=== PATIENT | female | born 1970 | race Caucasian/White ===

== ENCOUNTER → 2017-02-15 | Outpatient (CLI) | payer MEDICAID, OTHER ==
[~2017-02-15] MED LIST: ATOR40TA70 PO; AZEL23SP NS; BACL10TA PO; CLON0.5T3 PO; CLON1TAB3 PO; DICY10CA59 PO; DIPH25TA31 PO; DOCU-143 PO; DULA1.5P2 SQ; FLUT9.9S NS; GABA-486 PO; GEMF600T PO; HYDR-3812 PO; IBUP-1780 PO; LOVA40TA2 PO; MAGN300C PO; MELO7.5T46 PO; METF500T4 PO; METO-351 PO; OXCA600T3 PO; RT-ALBUINH IH; SERT100T8 PO; TRAZ100T92 PO; VORT20TA PO; VORT5TAB PO; ZOLM2.5T7 PO; ZOLP10TA5 PO
--- NOTE | 2017-02-15 13:33 | Diagnostic Imaging Report ---
PROCEDURE: MRI left upper extremity without contrast. TECHNIQUE: Multiplanar, multisequence non contrast-enhanced MRI of the left upper extremity was accomplished. INDICATION: Left shoulder pain. FINDINGS: There is no os acromiale or Hill-Sachs deformity. There is acromioclavicular joint osteoarthritis with inferior osteophytes seen. This has an impression upon the myotendinous junction of the supraspinatus. This is associated with minimal reactive increased signal on T2-weighted images at the underlying tendon. The distal aspect of the supraspinatus and to lesser extent the infraspinatus tendon demonstrates thickening with increased signal compatible with tendinosis. No high-grade tear or tendon fibers retraction seen. The subscapular tendon appears intact. The long head of the biceps tendon is within its groove. The visualized portions of the labrum appear grossly unremarkable based on this exam without intra-articular contrast. No significant signal abnormality. The muscle bulk and signal around the shoulder appears normal. IMPRESSION: 1. Acromioclavicular osteoarthritis with inferior osteophytes that have mild impression upon the myotendinous junction of the supraspinatus and minimal reactive increased signal. Correlate clinically for possible associated impingement. 2. Tendinosis in the distal supraspinatus and infraspinatus tendons. No high-grade or retracted tear seen. Dictated by: Dictated on workstation # [id number]
== END ==
LOC: RAD 12:22
PROVIDERS: ATTEND Nurse Practitioner Family
DX: M25.512 Pain in left shoulder (principal)
CPT/HCPCS: 73221

== ENCOUNTER → 2017-04-12 | Outpatient (CLI) | payer MEDICARE, OTHER ==
--- NOTE | 2017-04-13 19:14 | Diagnostic Imaging Report ---
Bilateral screening mammogram 2D views with tomosynthesis The current study was also evaluated with a Computer Aided Detection (CAD) system. Indication: Screening. No current complaints stated on the questionnaire. COMPARISON: 12/16/15. FINDINGS: The breasts are composed of heterogeneously dense parenchyma which may decrease mammographic sensitivity. Benign-appearing calcifications seen. Allowing for technique and positional differences, no suspicious change is seen. IMPRESSION: Dense breasts with no definite change. ACR BI-RADS Category 2: Benign findings. Result letter will be mailed to the patient. Note: At least 10% of breast cancer is not imaged by mammography. Dictated by: Dictated on workstation # [id number]
== END ==
LOC: RAD 13:06
PROVIDERS: ATTEND Nurse Practitioner Family
DX: Z12.31 Encounter for screening mammogram for malignant neoplasm of breast (principal)
CPT/HCPCS: 77067

== ENCOUNTER → 2017-11-20 | Outpatient (CLI) | payer MEDICARE, BC ==
[~2017-11-20] MED LIST changes: +ACHD5005 PO; -HYDR-3812 PO
--- NOTE | 2017-11-20 10:22 | Diagnostic Imaging Report ---
INDICATION: History of heart catheterization two years ago. Patient currently complains of pain in the right groin. TECHNIQUE: Grayscale, color-flow and duplex Doppler evaluation of the right lower extremity arterial system was performed. FINDINGS: There are predominantly triphasic waveforms throughout the right lower extremity arterial system. The velocities are normal. No velocity elevation is seen to suggest stenosis. There is no occlusion. Mild scattered plaque is present. The right groin is without evidence of pseudoaneurysm or hematoma. IMPRESSION: Unremarkable right lower extremity arterial Doppler. Dictated by: Dictated on workstation # [id number]
== END ==
LOC: RAD 09:32
PROVIDERS: ATTEND Nurse Practitioner Family
DX: I73.9 Peripheral vascular disease, unspecified (principal); E11.9 Type 2 diabetes mellitus without complications; E78.5 Hyperlipidemia, unspecified; R07.89 Other chest pain; R00.2 Palpitations
CPT/HCPCS: 93926

== ENCOUNTER → 2017-11-21 | Outpatient (CLI) | payer BC, MEDICARE ==
[~2017-11-21] VITALS: Ht 165.1 cm; Wt 81.6 kg
[~2017-11-21] MED LIST changes: +CATHETER FLUSH 10 ML SYR IV PRN; +REGADENOSON 0.4 MG/5 ML SYR (LEXISCAN) IV ONE
[2017-11-21 13:30] VITALS: BP 129/92
--- NOTE | 2017-11-21 16:53 | STRESS TEST ---
DATE OF SERVICE: 11/21/2017 RESTING AND POST REGADENOSON TECHNETIUM-99M TETROFOSMIN SPECT CT IMAGING ORDERING PHYSICIAN: Misty Conde APRN. CLINICAL DIAGNOSES: Chest pain, palpitations, hyperlipidemia, type 2 diabetes mellitus. Baseline images were carried out after injection of 10.55 mCi of technetium-99m Tetrofosmin. This was followed by 0.4 mg regadenoson and 30.4 mCi technetium-99m Tetrofosmin for stress imaging. The electrocardiogram showed sinus rhythm at baseline and did not change significantly with the regadenoson infusion. Review of images at rest and following stress does not indicate any significant perfusion defects consistent with any significant myocardial ischemia or infarction. Gated images show normal global left ventricular systolic function and normal regional wall motion. Left ventricular ejection fraction is calculated to be 72%. Left ventricular end diastolic volume is 32 mL. TID is absent (1.13). CONCLUSION: 1. No evidence of any significant myocardial ischemia or infarction on this study. 2. Normal regional wall motion. 3. Normal global left ventricular systolic function with a calculated ejection fraction of 72%. 4. Normal left ventricular cavity size. Job ID: [id number] DocumentID: [id number] Dictated Date: 11/21/2017 15:05:12 Museum Librarian Date: 11/21/2017 16:52:25 Dictated By: CLAUS MILLER MD, MA, FACP, FACC, MTDD
== END ==
LOC: CARD 11:25
PROVIDERS: ATTEND Nurse Practitioner Family
DX: R07.89 Other chest pain (principal); R00.2 Palpitations; E78.5 Hyperlipidemia, unspecified; E11.9 Type 2 diabetes mellitus without complications
CPT/HCPCS: 36415; 78452; 84703; 93017

== ENCOUNTER → 2021-02-26 | Outpatient (CLI) | payer BC, MEDICARE ==
[~2021-02-26] VITALS: Ht 165 cm; Wt 84.0 kg
[~2021-02-26] MED LIST changes: -CATHETER FLUSH 10 ML SYR IV PRN; -CLON0.5T3 PO; +CLON0.5T4 PO; +CLON1TAB13 PO; -CLON1TAB3 PO; +METF-397 PO; -METF500T4 PO; +SERT-414 PO; -SERT100T8 PO; +TRAZ-227 PO; -TRAZ100T92 PO; +ZOLM2.5T31 PO; -ZOLM2.5T7 PO
[2021-02-26] MEDS: CATHETER FLUSH 10 ML SYR IV PRN (07:14)
[2021-02-26 08:14] VITALS: BP 118/83
--- NOTE | 2021-02-26 10:52 | STRESS TEST ---
DATE OF SERVICE: 02/26/2021 RESTING AND POST REGADENOSON TECHNETIUM-99M TETROFOSMIN SPECT CT IMAGING ORDERING PHYSICIAN: Dr. French. PRIMARY PHYSICIAN: Dr. French. CLINICAL DIAGNOSIS: Chest discomfort. Baseline images were carried out after injection of 10.6 mCi of technetium-99m Tetrofosmin. This was followed by 0.4 mg regadenoson and 33 mCi of technetium-99m Tetrofosmin for stress imaging, which was done under Dr. French's supervision and the electrocardiographic part of the study is reported separately by him. Review of images at rest and following stress does not indicate any significant perfusion defects consistent with myocardial ischemia or infarction. Gated images show normal global left ventricular systolic function with normal regional wall motion. Left ventricular ejection fraction is calculated to be 72%. Left ventricular end diastolic volume is 28 mL. TID is absent (0.94). CONCLUSIONS: 1. No evidence of any significant myocardial ischemia or infarction on this study. 2. Normal regional wall motion. 3. Normal global left ventricular systolic function with a calculated ejection fraction of 72%. Job ID: [id number] DocumentID: [id number] Dictated Date: 02/26/2021 10:13:35 Customer Sales Consultant Date: 02/26/2021 10:51:33 Dictated By: CLAUS MILLER MD, MA, FACP, FACC,
== END ==
LOC: CARD 07:15
PROVIDERS: ATTEND Nurse Practitioner Family
DX: R07.89 Other chest pain (principal)
CPT/HCPCS: 78452; 93017; A9502

== ENCOUNTER → 2021-03-05 | Outpatient (CLI) | payer BC, MEDICARE ==
[~2021-03-05] MED LIST changes: -REGADENOSON 0.4 MG/5 ML SYR (LEXISCAN) IV ONE
--- NOTE | 2021-03-05 12:57 | Diagnostic Imaging Report ---
INDICATION: Bacterial pneumonia. COMPARISON: None available TECHNIQUE: 2 radiographs of the chest dated 03/05/2021 FINDINGS: The cardiac silhouette is within normal limits in size. No significant pulmonary vascular congestion. The lungs are clear. No pleural effusion. No pneumothorax. No acute osseous abnormality. Surgical clips within the right upper quadrant abdomen. IMPRESSION: No acute cardiopulmonary abnormality. Dictated by: Dictated on workstation # [id number]
[2021-03-05 13:02] LABS: HEMATOCRIT 43 % (35-52); HEMOGLOBIN 14.7 g/dL (11.5-16.0); MEAN CORPUSCULAR HEMOGLOBIN 29 pg (25-34); MEAN CORPUSCULAR HGB CONC 35 g/dL (32-36); MEAN CORPUSCULAR VOLUME 84 fL (80-99); MEAN PLATELET VOLUME 10.1 fL (9.0-12.2); PLATELET COUNT 220 10^3/uL (130-400); WHITE BLOOD COUNT 7.4 10^3/uL (4.3-11.0)
[2021-03-05 13:28] LABS: ALANINE AMINOTRANSFERASE 31 U/L (0-55); ALBUMIN 4.3 GM/DL (3.2-4.5); ALKALINE PHOSPHATASE 97 U/L (40-136); BILIRUBIN,TOTAL 0.6 MG/DL (0.1-1.0); BUN/CREATININE RATIO 10; CALCIUM 8.5 MG/DL (8.5-10.1); CARBON DIOXIDE 21 MMOL/L (21-32); CHLORIDE 103 MMOL/L (98-107); CREATININE SERUM 0.69 MG/DL (0.60-1.30); GFR ESTIMATED > 60; GLUCOSE 184 MG/DL (70-105); POTASSIUM 3.6 MMOL/L (3.6-5.0); SODIUM 137 MMOL/L (135-145); TOTAL PROTEIN 7.3 GM/DL (6.4-8.2)
== END ==
LOC: RAD 12:30
PROVIDERS: ATTEND Internal Medicine
DX: J15.9 Unspecified bacterial pneumonia (principal)
CPT/HCPCS: 36415; 71046; 80053; 85027; 87070; 87205

== ENCOUNTER 2021-04-14 12:15 | Outpatient (CLI) | payer BC, MEDICARE, MEDICAID ==
[~2021-04-14] VITALS: Ht 165 cm; Wt 81.6 kg
[2021-04-14 12:10] VITALS: BP 120/82
[2021-04-14] MEDS ORDERED: CASIRIVIMAB/IMDEVIMAB 1,200 MG in NS (IVPB) 250 ML IV ONE (12:30)
[2021-04-14] MEDS ORDERED: EPINEPHrine INJECTION 1 MG/ML AMP IM PRN (12:30)
[2021-04-14] MEDS ORDERED: diphenhydrAMINE 50 MG/ML INJ (BENADRYL) IV PRN (12:30)
[2021-04-14 12:32] VITALS: BP 107/61
[2021-04-14 13:25] VITALS: BP 114/78
== END 2021-04-14 14:25 | disposition home or self-care (01) ==
LOC: INFUSION 12:15
PROVIDERS: ATTEND Nurse Practitioner Family
DX: Z23 Encounter for immunization (principal); U07.1 COVID-19
CPT/HCPCS: 82947; M0243

== ENCOUNTER 2021-04-15 15:51 | Inpatient (IN) | payer BC, MEDICARE, MEDICAID ==
[~2021-04-15] VITALS: Ht 165 cm; Wt 80.1 kg
--- NOTE | 2021-04-15 16:41 | ED Respiratory ---
General Chief Complaint: Respiratory Problems Stated Complaint: SOB, VOMITTING, DIZZINESS, COVID POSITIVE Nursing Triage Note: PT PRESENTS TO ED FOR CONTINUED SHORTNESS OF BREATH THAT STARTED LAST MONDAY. PT WAS DIAGNOSED WITH COVID 04/10/21. PT GOT THE BAM INFUSION BUT HAS NO IMPROVEMENT, SHE REPORTS WORSENING OF SHORTNESS OF BREATH. PT REPORTS FEELING "DISORIENTED WHEN I WALK, I GET DIZZY". PT REPORTS SHE DOES HAVE ISSUES WITH HYPERTENSION. PT BROUGHT TO ROOM 09 VIA WC AND ASSISTED TO BED. Source: patient Exam Limitations: no limitations (BELÉN BYRD MD) History of Present Illness Date Seen by Provider: Apr 15, 2021 Time Seen by Provider: 16:25 Initial Comments Patient is a 51-year-old female who presents to the emergency room with a chief complaint of shortness of breath. Patient states that she was diagnosed with Covid on 10 April. She got her monoclonal antibody infusion yesterday but states that she is still short of breath. Patient states that she is "foggy headed". She has been nauseated and having vomiting. She is also having diarrhea. Patient is not currently on antibiotics. She has not had a chest x-ray since her diagnosis. Decreased oral intake. Patient looks well on presentation. She was satting 90 to 91% on room air and was placed on 2 L satting 94 to 95%. No increased work of breathing. All other review of systems reviewed and negative except as stated above. Timing/Duration: week, getting worse Severity: moderate Prior Episodes/Possible Cause: illness exposure Modifying Factors: Worse With Coughing Associated Symptoms: dizziness, fever/chills, lightheadedness, shortness of breath (BELÉN BYRD MD) Allergies and Home Medications Allergies Coded Allergies: No Known Drug Allergies (Verified , 07/18/16) Home Medications Albuterol Sulfate 8.5 Gm Hfa.aer.ad, 1-2 PUFF IH Q4H PRN for SHORTNESS OF BREATH, (Reported) Atorvastatin Calcium 40 Mg Tablet, 40 MG PO DAILY, (Reported) Baclofen 10 Mg Tablet, 10 MG PO TID PRN for PAIN, (Reported) Clonazepam 1 Mg Tablet, 1 MG PO TID, (Reported) Dicyclomine HCl 10 Mg Capsule, 10 MG PO AC, (Reported) Docusate Sodium 100 Mg Capsule, 100 MG PO BID Prescribed by: QAMAR ANDERSON on 01/21/16912 Dulaglutide 1.5 Mg/0.5 Ml Pen.injctr, 1.5 MG SQ WEEKLY, (Reported) Fluticasone Propionate 9.9 Ml [place].susp, 1 SPRAY NS DAILY, (Reported) Gabapentin 100 Mg Capsule, 100 MG PO TID, (Reported) Gemfibrozil 600 Mg Tablet, 600 MG PO BID, (Reported) Hydrocodone Bit/Acetaminophen 1 Each Tablet, 1 TAB PO Q4H PRN Prescribed by: QAMAR ANDERSON on 01/21/16912 Ibuprofen 800 Mg Tablet, 800 MG PO Q8H, (Reported) Magnesium Oxide/Mag Aa Chelate 300 Mg Capsule, 300 MG PO DAILY, (Reported) Metformin HCl 500 Mg Tablet, 500 MG PO BID, (Reported) Oxcarbazepine 600 Mg Tablet, 600 MG PO BID, (Reported) Trazodone HCl 100 Mg Tablet, 100 MG PO HS, (Reported) Vortioxetine Hydrobromide 20 Mg Tablet, 20 MG PO DAILY, (Reported) Zolmitriptan 2.5 Mg Tablet, 2.5 MG PO DAILY PRN for HEADACHE, (Reported) Patient Home Medication List Home Medication List Reviewed: Yes (BELÉN BYRD MD) Review of Systems Review of Systems Constitutional: see HPI EENTM: no symptoms reported Respiratory: cough, dyspnea on exertion, short of breath Cardiovascular: no symptoms reported Gastrointestinal: diarrhea, nausea, vomiting Genitourinary: no symptoms reported Musculoskeletal: no symptoms reported Psychiatric/Neurological: Other (Dizziness) (BELÉN BYRD MD) Past Yhrrppz-Qcyzsv-Hlwnfe Hx Seasonal Allergies Seasonal Allergies: Yes (BELÉN BYRD MD) Past Medical History Asthma Currently Using CPAP: Yes Currently Using BIPAP: No Reproductive Disorders: No Female Reproductive Disorders: Denies Sexually Transmitted Disease: No HIV/AIDS: No Gastroesophageal Reflux, Liver Disease/Jaundice, Chronic Diarrhea Degenerate Disk Disease, Arthritis, Fibromyalgia, Chronic Back Pain Diabetes, Non-Insulin dep Loss of Vision: Bilateral Hearing Impairment: Denies Anxiety, Depression Adverse Reaction/Blood Tranf: No (BELÉN BYRD MD) Physical Exam Vital Signs - First Documented 04/15/21 04/15/21 16:05 17:15 Temp 37.1 Pulse 98 Resp 20 B/P (MAP) 116/84 (95) Pulse Ox 94 O2 Delivery Room Air FiO2 90 (FRANCISCO RIVERA DO) Capillary Refill : Less Than 3 Seconds (BELÉN BYRD MD) Height: 5'5.00" Weight: 180lbs. 0.0oz. 81.358458mo; 29.00 BMI Method: General Appearance: WD/WN, no apparent distress HEENT: PERRL/EOMI Respiratory: no respiratory distress, no accessory muscle use, crackles (At the bases posteriorly, bilaterally) Cardiovascular: regular rate, rhythm Gastrointestinal: non tender, soft Extremities: normal inspection, no pedal edema, no calf tenderness, normal capillary refill Neurologic/Psychiatric: alert, normal mood/affect, oriented x 3 Skin: normal color, warm/dry (BELÉN BYRD MD) Focused Exam Lactate Level 04/15/21 18:30: Lactic Acid Level 2.28*H (FRANCISCO RIVERA DO) Lactic Acid Level Laboratory Tests Test 04/15/21 18:30 Lactic Acid Level 2.28 MMOL/L (0.50-2.00) *H (FRANCISCO RIVERA DO) Progress/Results/Core Measures Suspected Sepsis SIRS Temperature: Pulse: 98 Respiratory Rate: 20 Laboratory Tests 04/15/21 16:14: White Blood Count 8.2 Blood Pressure 116 /84 Mean: 95 Laboratory Tests 04/15/21 16:14: Creatinine 1.47H, Platelet Count 125L (BELÉN BYRD MD) Results/Orders Lab Results Laboratory Tests Test 04/15/21 16:14 04/15/21 18:26 04/15/21 18:30 04/15/21 18:46 Range/Units White Blood Count 8.2 4.3-11.0 10^3/uL Red Blood Count 4.78 3.80-5.11 10^6/uL Hemoglobin 13.8 11.5-16.0 g/dL Hematocrit 40 35-52 % Mean Corpuscular Volume 84 80-99 fL Mean Corpuscular Hemoglobin 29 25-34 pg Mean Corpuscular Hemoglobin Concent 35 32-36 g/dL Red Cell Distribution Width 12.9 10.0-14.5 % Platelet Count 125 L 130-400 10^3/uL Mean Platelet Volume 11.5 9.0-12.2 fL Immature Granulocyte % (Auto) 1 % Neutrophils (%) (Auto) 81 H 42-75 % Lymphocytes (%) (Auto) 17 12-44 % Monocytes (%) (Auto) 2 0-12 % Eosinophils (%) (Auto) 0 0-10 % Basophils (%) (Auto) 0 0-10 % Neutrophils # (Auto) 6.6 1.8-7.8 10^3/uL Lymphocytes # (Auto) 1.4 1.0-4.0 10^3/uL Monocytes # (Auto) 0.1 0.0-1.0 10^3/uL Eosinophils # (Auto) 0.0 0.0-0.3 10^3/uL Basophils # (Auto) 0.0 0.0-0.1 10^3/uL Immature Granulocyte # (Auto) 0.0 0.0-0.1 10^3/uL Percent Immature Platelet Fraction 5.5 0.0-7.6 % Erythrocyte Sedimentation Rate 52 H 0-30 MM/HR Prothrombin Time 13.7 12.2-14.7 SEC INR Comment 1.0 0.8-1.4 Activated Partial Thromboplast Time 40 H 24-35 SEC D-Dimer 0.48 0.00-0.49 UG/ML Sodium Level 139 135-145 MMOL/L Potassium Level 3.2 L 3.6-5.0 MMOL/L Chloride Level 103 98-107 MMOL/L Carbon Dioxide Level 18 L 21-32 MMOL/L Anion Gap 18 H 5-14 MMOL/L Blood Urea Nitrogen 15 7-18 MG/DL Creatinine 1.47 H 0.60-1.30 MG/DL Estimat Glomerular Filtration Rate 38 BUN/Creatinine Ratio 10 Glucose Level 507 *H 70-105 MG/DL Calcium Level 8.8 8.5-10.1 MG/DL Magnesium Level 1.5 L 1.6-2.4 MG/DL Total Bilirubin 0.5 0.1-1.0 MG/DL Direct Bilirubin 0.2 0.0-0.3 MG/DL Indirect Bilirubin 0.3 MG/DL Aspartate Amino Transf (AST/SGOT) 36 H 5-34 U/L Alanine Aminotransferase (ALT/SGPT) 42 0-55 U/L Alkaline Phosphatase 82 40-136 U/L Lactate Dehydrogenase 286 H 125-220 U/L Total Creatine Kinase 43 29-168 U/L Creatine Kinase MB 0.3 <6.6 NG/ML Myoglobin 35.8 10.0-92.0 NG/ML Troponin I < 0.028 <0.028 NG/ML C-Reactive Protein High Sensitivity 21.39 H 0.00-0.50 MG/DL B-Type Natriuretic Peptide 22.7 <100.0 PG/ML Total Protein 7.3 6.4-8.2 GM/DL Albumin 3.9 3.2-4.5 GM/DL Beta-Hydroxybutyrate (Chem panel) 0.11 0.00-0.27 MMOL/L Procalcitonin 0.53 H <0.10 NG/ML Glucometer 362 H 70-110 MG/DL Lactic Acid Level 2.28 *H 0.50-2.00 MMOL/L Blood Gas Puncture Site R RADIAL Blood Gas Patient Temperature 97.7 Arterial Blood pH 7.32 *L 7.37-7.43 Arterial Blood Partial Pressure CO2 42 35-45 MMHG Arterial Blood Partial Pressure O2 32 *L 79-93 MMHG Arterial Blood HCO3 21 L 23-27 MMOL/L Arterial Blood Total CO2 22.2 21.0-31.0 MMOL/L Arterial Blood Oxygen Saturation 41 L 94-100 % Arterial Blood Base Excess -4.4 L -2.5-2.5 MMOL/L Arpit Test POSITIVE Blood Gas Ventilator Setting NO Blood Gas Inspired Oxygen N/A Test 04/15/21 19:37 Range/Units Glucometer 323 H 70-110 MG/DL (FANNY,FRANCISCO K DO) My Orders Orders - FANNY,FRANCISCO K DO Acetaminophen Tablet (Tylenol Tablet) (04/15/21 18:30) LDH (04/15/21 18:25) Blood Culture (04/15/21 18:25) Liver Panel (04/15/21 18:25) Fibrin Degradation Products (04/15/21 18:25) Lactic Acid Analyzer (04/15/21 18:25) Magnesium (04/15/21 18:25) Protime With Inr (04/15/21 18:25) Partial Thromboplastin Time (04/15/21 18:25) Hs C Reactive Protein (04/15/21 18:25) Erythrocyte Sedimentation Rate (04/15/21 18:25) Ua Culture If Indicated (04/15/21 18:25) Ed Iv/Invasive Line Start (04/15/21 18:32) Ns Iv 1000 Ml (Sodium Chloride 0.9%) (04/15/21 18:45) Potassium Chloride (Tablet) (Klor Con Ta (04/15/21 18:45) Aspirin Chewable Tablet (Baby Aspirin Ch (04/15/21 19:00) Ekg Tracing (04/15/21 18:51) O2 (04/15/21 18:51) Monitor-Rhythm Ecg Trace Only (04/15/21 18:51) BNP (04/15/21 18:51) Creatine Kinase (04/15/21 18:51) Creatine Kinase Mb (04/15/21 18:51) Myoglobin Serum (04/15/21 18:51) Troponin I (04/15/21 18:51) Nitroglycerin 0.4 Mg Btl 25's (Nitrostat (04/15/21 19:00) Arterial Blood Gas (04/15/21 19:13) Ceftriaxone (Rocephin) (04/15/21 19:30) Azithromycin Injection (Zithromax Inject (04/15/21 19:30) Magnesium Oxide Tablet (Mag Ox Tablet) (04/15/21 19:30) Accucheck Stat ONCE (04/15/21 19:28) (FRANCISCO RIVERA DO) Medications Given in ED Current Medications Medications Dose Ordered Sig/Víctor Route Start Time Stop Time Status Last Admin Dose Admin Acetaminophen 1,000 mg ONCE ONCE PO 04/15/21 18:30 04/15/21 18:31 DC 04/15/21 18:29 1,000 MG Aspirin 324 mg ONCE ONCE PO 04/15/21 19:00 04/15/21 19:01 DC 04/15/21 19:01 324 MG Azithromycin 500 mg/Sodium Chloride 250 ml @ 250 mls/hr ONCE ONCE IV 04/15/21 19:30 04/15/21 20:29 DC 04/15/21 19:54 250 MLS/HR Ceftriaxone Sodium 1000 mg/ Sterile Water 10 ml @ 200 mls/hr ONCE ONCE IV 04/15/21 19:30 04/15/21 19:32 DC 04/15/21 19:44 200 MLS/HR Magnesium Oxide 2,000 mg ONCE ONCE PO 04/15/21 19:30 04/15/21 19:31 DC 04/15/21 19:41 2,000 MG Nitroglycerin 1 TAB Q 5 MIN X 3 NEEDED PRN SL 04/15/21 19:00 04/15/21 21:45 DC 04/15/21 19:06 0.4 MG Ondansetron HCl 4 mg ONCE ONCE PO 04/15/21 16:45 04/15/21 16:46 DC 04/15/21 16:48 4 MG Potassium Chloride 40 meq ONCE ONCE PO 04/15/21 18:45 04/15/21 18:46 DC 04/15/21 18:38 40 MEQ (FRANCISCO RIVERA DO) Vital Signs/I&O 04/15/21 04/15/21 04/15/21 16:05 17:15 19:11 Temp 37.1 Pulse 98 94 Resp 20 B/P (MAP) 116/84 (95) Pulse Ox 94 O2 Delivery Room Air Room Air FiO2 90 04/16/21 00:00 Intake Total 4000 ml Balance 4000 ml (FANNY,FRANCISCO K DO) Vital Signs/I&O Capillary Refill : Less Than 3 Seconds (BELÉN BYRD MD) Blood Pressure Mean: 95 Progress Note : Time: 17:54 Progress Note Patient laboratory studies evaluated, she has a CO2 of 18, and anion gap of 18 and a serum blood sugar of 507. Patient is hydrated with 2 L of normal saline here in the emergency department. I have added on beta hydroxybutyrate as well as an ABG to further evaluate for DKA. Anticipate if these are normal the patient can be discharged home as she is not hypoxic or in any respiratory distress. If they are abnormal the patient will need to be admitted observation for treatment of her DKA. (BELÉN BYRD MD) Progress Note : Progress Note 1800--ASSUMED CARE FROM DR. BYRD. ABG AND BETA-HYDROXYBUTYRATE PENDING. PT IS 95% ON ROOM AIR AND NO DYSPNEA. PT WANTING SOMETHING FOR BODY ACHES--TYLENOL ORDERED. PT IS AFEBRILE 1851--O2 SATS BACK DOWN TO 89-91% ON ROOM AIR--UP TO MID 90'S ON O2 AT 2L/NC. PT NOW C/O CHEST PAIN. REPEAT EKG DONE, WHICH IS UNCHANGED, AND ADDITIONAL LAB OR DERED. PT ALSO GIVEN ASPIRIN AND NTG X 3 WITH IMPROVEMENT IN SYMPTOMS PT GIVEN ROCEPHIN AND ZITHROMAX PT GIVEN MAGNESIUM VITALS STABLE NO DYSPNEA NO COUGH NO FEVER GIVEN IV FLUIDS WITH GLUCOSE DOWN TO 300'S (FRANCISCO RIVERA DO) ECG Initial ECG Impression Date: Apr 15, 2021 Initial ECG Impression Time: 16:54 Initial ECG Rate: 94 Initial ECG Rhythm: Normal Sinus EKG : EKG Time: 18:57 Rate: 95 Rhythm: Normal Sinus ECG Comparisson: Unchanged (FRANCISCO RIVERA DO) Diagnostic Imaging Comments CXR--PER RADIOLOGIST REPORT IMPRESSION: New bilateral airspace opacities, greatest in the left mid and lower lung, suspicious for pneumonitis. Reviewed: Reviewed by Me (FRANCISCO RIVERA DO) Transfer of Care Transfer of Care Time: 18:00 Care transferred to: Dr Rivera (BELÉN BYRD MD) Departure Communication (Admissions) 1937--SPOKE WITH DR. MARSH, HOSPITALIST, ACCEPTS PT FOR ADMIT. ORDERS NOTED (FRANCISCO RIVERA DO) Impression Primary Impression: Pneumonia due to COVID-19 virus Additional Impressions: MILD ACIDOSIS Hypomagnesemia Chest pain Hypoxia Uncontrolled insulin dependent diabetes mellitus UTI (urinary tract infection) Disposition: ADMITTED INPATIENT Condition: Improved Admissions Decision to Admit Reason: Admit from ER (General) Decision to Admit/Date: Apr 15, 2021 Time/Decision to Admit Time: 19:40 (FRANCISCO RIVERA DO) Departure-Patient Inst. Referrals: CIARA MONTENEGRO DO (PCP/Family) Primary Care Physician BELÉN BYRD MD Apr 15, 2021 16:41 FRANCISCO RIVERA DO Apr 15, 2021 18:23
[2021-04-15] MEDS ORDERED: RT-ALBUTEROL INHALER HFA (VENTOLIN HFA) 18 GM IH ONE (16:44)
[2021-04-15] MEDS ORDERED: ONDANSETRON 4 MG (ZOFRAN) ORAL DISSOLVE TAB PO ONE (16:45)
[2021-04-15] MEDS ORDERED: NS IV 1000 ML 1,000 ML IV SCH ×3 (16:45→18:45)
[2021-04-15] MEDS: RT-ALBUTEROL INHALER HFA (VENTOLIN HFA) 18 GM IH SCH ×2 (16:50→23:05)
[2021-04-15 16:51] LABS: BASOPHILS % (AUTO) 0 % (0-10); HEMOGLOBIN 13.8 g/dL (11.5-16.0); MEAN CORPUSCULAR HEMOGLOBIN 29 pg (25-34)
[2021-04-15 16:53] LABS: EOSINOPHILS % (AUTO) 0 % (0-10); HEMATOCRIT 40 % (35-52); LYMPHOCYTES # (AUTO) 1.4 10^3/uL (1.0-4.0); LYMPHOCYTES % (AUTO) 17 % (12-44); MEAN CORPUSCULAR HGB CONC 35 g/dL (32-36); MEAN CORPUSCULAR VOLUME 84 fL (80-99); MEAN PLATELET VOLUME 11.5 fL (9.0-12.2); MONOCYTES # (AUTO) 0.1 10^3/uL (0.0-1.0); MONOCYTES % (AUTO) 2 % (0-12); NEUTROPHILS # (AUTO) 6.6 10^3/uL (1.8-7.8); NEUTROPHILS % (AUTO) 81 % (42-75); PLATELET COUNT 125 10^3/uL (130-400); WHITE BLOOD COUNT 8.2 10^3/uL (4.3-11.0)
[2021-04-15 16:54] LABS: POTASSIUM 3.2 MMOL/L (3.6-5.0)
[2021-04-15 16:55] LABS: CALCIUM 8.8 MG/DL (8.5-10.1)
[2021-04-15 16:59] LABS: CREATININE SERUM 1.47 MG/DL (0.60-1.30)
--- NOTE | 2021-04-15 17:17 | Diagnostic Imaging Report ---
EXAM: Chest 1 view, AP/PA only. INDICATION: COVID. Short of breath. COMPARISON: Chest radiographs 03/05/2021. FINDINGS: Normal heart size and central pulmonary vascularity. Scattered airspace opacities are greatest in the left mid and lower lung. No pleural effusion or pneumothorax. No acute osseous finding. IMPRESSION: New bilateral airspace opacities, greatest in the left mid and lower lung, suspicious for pneumonitis. Dictated by: Dictated on workstation # [id number]
[2021-04-15] MEDS ORDERED: ACETAMINOPHEN 500 MG TAB (TYLENOL) PO ONE (18:30)
[2021-04-15] MEDS ORDERED: KCL 10 MEQ TAB (MICRO K) PO ONE (18:45)
[2021-04-15 18:53] LABS: ALBUMIN 3.9 GM/DL (3.2-4.5)
[2021-04-15 18:54] LABS: FIBRIN DEGRADATION PRODUCTS 0.48 UG/ML (0.00-0.49); PROTHROMBIN TIME PATIENT 13.7 SEC (12.2-14.7)
[2021-04-15 18:54] LABS: ABG BASE EXCESS -4.4 MMOL/L (-2.5-2.5); ABG OXYGEN SATURATION 41 % (94-100); ABG PCO2 42 MMHG (35-45); ABG TCO2 22.2 MMOL/L (21.0-31.0)
[2021-04-15 18:55] LABS: ABG PO2 32 MMHG (79-93)
[2021-04-15 18:56] LABS: ABG PH 7.32 (7.37-7.43); ALLENS TEST POSITIVE; PATIENT TEMP 97.7; VENTILATOR NO
[2021-04-15 18:56] LABS: TOTAL PROTEIN 7.3 GM/DL (6.4-8.2)
[2021-04-15 18:58] LABS: BILIRUBIN,TOTAL 0.5 MG/DL (0.1-1.0)
[2021-04-15] MEDS: NITROGLYCERIN 0.4 MG SL TABS BTL 25'S SL PRN ×2 (19:00→19:06)
[2021-04-15] MEDS ORDERED: ASPIRIN 81 MG CHEW (CHILDREN'S ASA) PO ONE (19:00)
[2021-04-15 19:01] LABS: BILIRUBIN,DIRECT 0.2 MG/DL (0.0-0.3); BILIRUBIN,INDIRECT 0.3 MG/DL
[2021-04-15 19:02] LABS: MAGNESIUM 1.5 MG/DL (1.6-2.4)
[2021-04-15 19:17] LABS: CREATINE KINASE 43 U/L (29-168)
[2021-04-15 19:23] LABS: CREATINE KINASE MB 0.3 NG/ML (<6.6)
[2021-04-15] MEDS ORDERED: MAGNESIUM OXIDE (MAG-OX)400 MG TAB PO ONE (19:30)
[2021-04-15] MEDS ORDERED: AZITHROMYCIN INJECTION 500 MG in NS (IVPB) 250 ML IV ONE (19:30)
[2021-04-15] MEDS ORDERED: cefTRIAXone 1,000 MG in WATER (STERILE) FOR INJECTION 10 ML IV ONE (19:30)
[2021-04-15] MEDS ORDERED: ONDANSETRON 4 MG/2 ML (SDV) Z0FRAN IVP ONE (20:15)
[2021-04-15 21:37] VITALS: BP 116/84
[2021-04-15] MEDS ORDERED: NITROGLYCERIN 0.4 MG SL TABS BTL 25'S SL PRN (21:45)
[2021-04-15] MEDS ORDERED: ONDANSETRON 4 MG/2 ML (SDV) Z0FRAN IVP PRN (21:45)
[2021-04-15] MEDS ORDERED: morphine INJ 4 MG/ML 1 ML (VIAL/SYRINGE) IV PRN (21:45)
[2021-04-15] MEDS ORDERED: RT-ALBUTEROL INHALER HFA (VENTOLIN HFA) 18 GM IH PRN (21:45)
[2021-04-15] MEDS: 1/2 NS W/KCL 20 MEQ/L 1,000 ML IV SCH (22:00)
[2021-04-15] MEDS: IBUPROFEN 800 MG (MOTRIN) TAB PO PRN (22:07)
[2021-04-15 23:05] LABS: BILIRUBIN,URINE NEGATIVE (NEGATIVE); CLARITY,URINE CLEAR; COLOR,URINE YELLOW; GLUCOSE, URINE (UA) 2+ (NEGATIVE); KETONES,URINE NEGATIVE (NEGATIVE); LEUKOCYTE ESTERASE ,URINE NEGATIVE (NEGATIVE); NITRITE,URINE NEGATIVE (NEGATIVE); PROTEIN,URINE 1+ (NEGATIVE)
[2021-04-15 23:20] LABS: BACTERIA,URINE FEW /HPF; WBC,URINE 25-50 /HPF
[2021-04-16] MEDS: RT-ALBUTEROL INHALER HFA (VENTOLIN HFA) 18 GM IH SCH ×6 (02:50→21:31)
[2021-04-16 04:17] LABS: BASOPHILS % (AUTO) 0 % (0-10); EOSINOPHILS % (AUTO) 0 % (0-10); HEMATOCRIT 33 % (35-52); LYMPHOCYTES % (AUTO) 36 % (12-44); MEAN CORPUSCULAR HEMOGLOBIN 28 pg (25-34); MEAN CORPUSCULAR HGB CONC 33 g/dL (32-36); MEAN CORPUSCULAR VOLUME 86 fL (80-99); MEAN PLATELET VOLUME 11.1 fL (9.0-12.2); MONOCYTES # (AUTO) 0.1 10^3/uL (0.0-1.0); MONOCYTES % (AUTO) 2 % (0-12); NEUTROPHILS # (AUTO) 3.3 10^3/uL (1.8-7.8); NEUTROPHILS % (AUTO) 61 % (42-75); PLATELET COUNT 112 10^3/uL (130-400); WHITE BLOOD COUNT 5.5 10^3/uL (4.3-11.0)
[2021-04-16 04:38] LABS: SMEAR SCAN COMMENT YES
[2021-04-16 04:39] LABS: CHLORIDE 112 MMOL/L (98-107); POTASSIUM 3.4 MMOL/L (3.6-5.0); SODIUM 140 MMOL/L (135-145)
[2021-04-16 04:40] LABS: CALCIUM 7.6 MG/DL (8.5-10.1)
[2021-04-16 04:41] LABS: TOTAL PROTEIN 5.6 GM/DL (6.4-8.2); TRIGLYCERIDES 334 MG/DL (<150); VLDL CHOLESTEROL 67 MG/DL (5-40)
[2021-04-16 04:42] LABS: CARBON DIOXIDE 18 MMOL/L (21-32); GLUCOSE 324 MG/DL (70-105)
[2021-04-16 04:43] LABS: BILIRUBIN,TOTAL 0.3 MG/DL (0.1-1.0)
[2021-04-16 04:45] LABS: ALKALINE PHOSPHATASE 63 U/L (40-136); CREATININE SERUM 0.79 MG/DL (0.60-1.30); GFR ESTIMATED > 60
[2021-04-16 04:46] LABS: BUN/CREATININE RATIO 14; CHOLESTEROL 113 MG/DL (< 200)
[2021-04-16 04:47] LABS: HDL CHOLESTEROL 32 MG/DL (40-60)
[2021-04-16 04:48] LABS: ALANINE AMINOTRANSFERASE 31 U/L (0-55); MAGNESIUM 1.6 MG/DL (1.6-2.4)
[2021-04-16] MEDS: inSUlin ASPART (NovoLOG) 1 UNIT/0.01 ML (CHARGE PER UNIT) SC SCH ×6 (06:33→20:15)
[2021-04-16] MEDS: 1/2 NS W/KCL 20 MEQ/L 1,000 ML IV SCH ×3 (06:33→22:42)
[2021-04-16] MEDS ORDERED: REMDESIVIR INJ 200 MG in NS (IVPB) 210 ML IV NR (07:00)
[2021-04-16] MEDS: ASPIRIN E.C. 81 MG (ECOTRIN) TAB PO SCH (07:52)
[2021-04-16] MEDS: ENOXAPARIN 40 MG/0.4 ML (LOVENOX) SYR SC SCH (07:53)
[2021-04-16] MEDS ORDERED: guaiFENesin/DM (ROBITUSSIN DM) 10 ML UDC ONE (08:03)
[2021-04-16] MEDS: ACETAMINOPHEN 500 MG TAB (TYLENOL) PO PRN ×2 (08:04→16:29)
[2021-04-16] MEDS: guaiFENesin/DM (ROBITUSSIN DM) 10 ML UDC PO PRN ×3 (08:05→23:50)
--- NOTE | 2021-04-16 09:14 | History & Physical-Hospitalist ---
History of Present Illness HPI/Chief Complaint Pt is a 51yoCF with a PMH of fibromyalgia, NIDDMII, HLD, chronic diarrhea who presented to the ER duet o shortness of breath and weakness. She became symptomatic with COVID on 04/09 and tested positive on 04/10. She is unvaccinated against COVID. She received Regen-Cov on 04/14. Despite this she has continued to not feel well and was mildly hypoxic so admitted for further management. She states she had a rough night and did not sleep well. Otherwise no complaints. Source: patient Date Seen 04/16/21 Time Seen by a Provider: 09:10 Attending Physician Frank Morales MD PCP Brock French DO Referring Physician Date of Admission Apr 15, 2021 at 19:40 Home Medications & Allergies Home Medications Reviewed patient Home Medication Reconciliation performed by pharmacy medication reconciliations mental health technician and/or nursing. Patients Allergies have been reviewed. Allergies Allergies Coded Allergies No Known Drug Allergies (Cvkucblk82/17/16) Past Vgunipv-Saojfj-Mdwzjw Hx Patient Social History Tobacco Use?: No Smoking Status: Never a Smoker Use of E-Cig and/or Vaping dev: No Substance use?: No Alcohol Use?: No Alcohol Frequency: Once in a while Pt feels they are or have been: No Immunizations Up To Date Date of Influenza Vaccine: Jun 09, 2015 First/Initial COVID19 Vaccinat: Did not get Tetanus Booster (TDap): Unknown Hepatitis A: No Hepatitis B: No Date of Pneumonia Vaccine: Jun 09, 2015 Seasonal Allergies Seasonal Allergies: Yes Current Status status: No status: No Advance Directives: No Communicates: Verbally Primary Language: [place] Islander Preferred Spoken Language: [place] Islander Is interpretation needed?: No Sensory deficits: Vision impairment Implanted or Applied Medical D: None Past Medical History Asthma Currently Using CPAP: Yes Currently Using BIPAP: No Sexually Transmitted Disease: No HIV/AIDS: No Gastroesophageal Reflux, Liver Disease/Jaundice, Chronic Diarrhea Degenerate Disk Disease, Arthritis, Fibromyalgia, Chronic Back Pain Diabetes, Non-Insulin dep Loss of Vision: Bilateral Hearing Impairment: Denies Anxiety, Depression Adverse Reaction/Blood Tranf: No Review of Systems Constitutional: chills, fever, malaise EENTM: no symptoms reported Respiratory: cough, short of breath Gastrointestinal: diarrhea, loss of appetite, nausea Genitourinary: no symptoms reported Musculoskeletal: muscle pain, muscle cramps Skin: no symptoms reported Psychiatric/Neurological: No Symptoms Reported Physical Exam Physical Exam Vital Signs Vital Signs - First Documented 04/15/21 04/15/21 04/15/21 16:05 17:15 20:55 Temp 37.1 Pulse 98 Resp 20 B/P (MAP) 116/84 (95) Pulse Ox 94 O2 Delivery Room Air O2 Flow Rate 2.00 FiO2 90 Capillary Refill : Less Than 3 Seconds Height, Weight, BMI Height: 5'5.00" Weight: 180lbs. 0.0oz. 81.679805zi; 30.70 BMI Method: General Appearance: No Apparent Distress, Obese HEENT: PERRL/EOMI, Moist Mucous Membranes; No Scleral Icterus (L), No Scleral Icterus (R) Neck: Normal Inspection, Supple Respiratory: Lungs Clear, No Accessory Muscle Use, Other (on 2lpm) Cardiovascular: Regular Rate, Rhythm, No Murmur Gastrointestinal: Normal Bowel Sounds, Non Tender, Soft Extremity: Normal Capillary Refill, No Calf Tenderness, No Pedal Edema Neurologic/Psychiatric: Alert, Oriented x3, Normal Mood/Affect Skin: Normal Color, Warm/Dry Results Results/Procedures Labs Laboratory Tests 04/15/21 16:14 04/16/21 03:40 04/17/21 03:15 Patient resulted labs reviewed. Imaging: Reviewed Imaging Report Imaging [facility], [place] NAME: PAULINO CAMARENA [facility] REC#: [id number] PT STATUS: REG ER : 1970 PHYSICIAN: BELÉN BYRD MD ADMIT DATE: 04/15/21/ER Signed Date of Exam:04/15/21 CHEST 1 VIEW, AP/PA ONLY EXAM: Chest 1 view, AP/PA only. INDICATION: COVID. Short of breath. COMPARISON: Chest radiographs 03/05/2021. FINDINGS: Normal heart size and central pulmonary vascularity. Scattered airspace opacities are greatest in the left mid and lower lung. No pleural effusion or pneumothorax. No acute osseous finding. IMPRESSION: New bilateral airspace opacities, greatest in the left mid and lower lung, suspicious for pneumonitis. Dictated by: Dictated on workstation # [id number] Dict: 04/15/21 [id number] Trans: 04/15/212010 [id number] Interpreted by: FLORIN BOLAÑOS MD Electronically signed by: FLORIN BOLAÑOS MD 04/15/212010 Assessment/Plan Admission Diagnosis Acute hypoxic respiratory failure due to COVID19 Admission Status: Inpatient Order (span 2 midnights) Reason for Inpatient Admission: see below Assessment and Plan Acute hypoxic respiratory failure due to COVID19 (pa02 32 on RA) Continue oxygen supplementation to keeps sats >90 Start decadron Continue remdesivir Already received monocloncal antibody so no indication for convalescent plasma MAT protocol Lovenox ppx NIDDMII Will add sliding scale insulin and BS high and likely worsened by steroids Continue Levemir 20 units HS HLD Fibromyalgia Obesity No acute needs, continue home meds NIDA IQBAL MD Apr 16, 2021 09:14
[2021-04-16] MEDS: IBUPROFEN 800 MG (MOTRIN) TAB PO PRN (11:23)
[2021-04-16] MEDS: dexAMETHasone 6 MG TAB (DECADRON) PO SCH (11:23)
[2021-04-16] MEDS ORDERED: NITR50CA PO (14:04)
[2021-04-16] MEDS ORDERED: OXYB5TAB13 PO (14:04)
[2021-04-16] MEDS ORDERED: LEVO5TAB12 PO (14:04)
[2021-04-16] MEDS ORDERED: COLE1TAB PO (14:04)
[2021-04-16] MEDS ORDERED: PROG100C11 PO (14:04)
[2021-04-16] MEDS ORDERED: METO100T12 PO (14:04)
[2021-04-16] MEDS ORDERED: RT-ALBUINH INH (14:04)
[2021-04-16] MEDS ORDERED: FLUT1BLS11 INH (14:04)
[2021-04-16] MEDS ORDERED: LISI20TA26 PO (14:04)
[2021-04-16] MEDS ORDERED: hydrOXYzine (ATARAX) 10 MG TAB PO PRN (18:30)
[2021-04-16] MEDS: AZITHROMYCIN 500 MG/NS 250 ML IVPB IV SCH ×2 (20:12)
[2021-04-16] MEDS: cefTRIAXone 1,000 MG/SWFI 10 ML IV PUSH IV SCH ×2 (20:13)
[2021-04-16] MEDS: OXYBUTYNIN (DITROPAN) 5 MG TAB PO SCH (20:15)
[2021-04-16] MEDS: meTOprolol TARTRATE 50 MG (LOPRESSOR) TAB PO SCH (20:15)
[2021-04-16] MEDS: NITROFURANTOIN 50 MG (MACRODANTIN) CAP PO SCH (20:16)
[2021-04-16] MEDS: COLESTIPOL 1 GM (COLESTID) TAB PO SCH (20:16)
[2021-04-16] MEDS ORDERED: ONDANSETRON 4 MG/2 ML (SDV) Z0FRAN IV PRN (20:30)
[2021-04-16] MEDS ORDERED: MILK OF MAGNESIA 400 MG/5 ML 30 ML UDC PO PRN (20:30)
[2021-04-16] MEDS ORDERED: MELATONIN 3 MG TABLET PO PRN (20:30)
[2021-04-16] MEDS ORDERED: ANTACID SUSP 30 ML UDC (MYLANTA) PO PRN (20:30)
[2021-04-16] MEDS ORDERED: BENZONATATE 100 MG (TESSALON) CAPSULE PO PRN (20:30)
[2021-04-16] MEDS ORDERED: FLUTICASONE PROPION INH SCH (21:00)
[2021-04-16] MEDS ORDERED: NON-FORMULARY MEDICATION 1 EA EA (Progesterone,Micronized (Progesterone) 100 MG) PO SCH (21:00)
[2021-04-16] MEDS ORDERED: [UNRECOGNIZED DRUG - OTHER] INH SCH (21:00)
[2021-04-16] MEDS ORDERED: NON-FORMULARY MEDICATION 1 EA EA (Metoprolol Tartrate 100 MG) PO SCH (21:00)
[2021-04-16] MEDS ORDERED: SALMETEROL INH SCH (21:00)
[2021-04-16] MEDS: RT--FLUTICASONE/SALMETEROL 113-14 (AIRDUO RespiCLICK) IH SCH (21:14)
[2021-04-17] MEDS: ACETAMINOPHEN 500 MG TAB (TYLENOL) PO PRN ×3 (01:45→20:07)
[2021-04-17] MEDS: RT-ALBUTEROL INHALER HFA (VENTOLIN HFA) 18 GM IH SCH ×4 (01:57→19:57)
[2021-04-17 03:24] LABS: HEMATOCRIT 34 % (35-52); HEMOGLOBIN 11.8 g/dL (11.5-16.0); MEAN CORPUSCULAR HEMOGLOBIN 29 pg (25-34); MEAN CORPUSCULAR HGB CONC 34 g/dL (32-36); MEAN CORPUSCULAR VOLUME 84 fL (80-99); MEAN PLATELET VOLUME 10.9 fL (9.0-12.2); PLATELET COUNT 171 10^3/uL (130-400); WHITE BLOOD COUNT 4.8 10^3/uL (4.3-11.0)
[2021-04-17 04:04] LABS: ALBUMIN 3.3 GM/DL (3.2-4.5)
[2021-04-17 04:05] LABS: CHLORIDE 109 MMOL/L (98-107); POTASSIUM 3.6 MMOL/L (3.6-5.0); SODIUM 142 MMOL/L (135-145)
[2021-04-17 04:06] LABS: CALCIUM 8.1 MG/DL (8.5-10.1)
[2021-04-17 04:07] LABS: GLUCOSE 337 MG/DL (70-105); TOTAL PROTEIN 6.1 GM/DL (6.4-8.2)
[2021-04-17 04:08] LABS: CARBON DIOXIDE 18 MMOL/L (21-32)
[2021-04-17 04:09] LABS: BILIRUBIN,TOTAL 0.4 MG/DL (0.1-1.0)
[2021-04-17 04:10] LABS: ALKALINE PHOSPHATASE 67 U/L (40-136)
[2021-04-17 04:11] LABS: CREATININE SERUM 0.68 MG/DL (0.60-1.30); GFR ESTIMATED > 60
[2021-04-17 04:12] LABS: BUN/CREATININE RATIO 18
[2021-04-17 04:13] LABS: ALANINE AMINOTRANSFERASE 29 U/L (0-55)
[2021-04-17] MEDS: 1/2 NS W/KCL 20 MEQ/L 1,000 ML IV SCH ×2 (05:28→18:58)
[2021-04-17] MEDS: inSUlin ASPART (NovoLOG) 1 UNIT/0.01 ML (CHARGE PER UNIT) SC SCH ×7 (06:09→21:16)
[2021-04-17] MEDS: REMDESIVIR INJ 100 MG in NS (IVPB) 230 ML IV SCH (06:53)
[2021-04-17] MEDS: dexAMETHasone 6 MG TAB (DECADRON) PO SCH (06:53)
[2021-04-17] MEDS ORDERED: LEVOCETIRIZINE 5 MG TAB (XYZAL) NON-FORMULARY PO SCH (09:00)
[2021-04-17] MEDS: ENOXAPARIN 40 MG/0.4 ML (LOVENOX) SYR SC SCH (09:16)
[2021-04-17] MEDS: ASPIRIN E.C. 81 MG (ECOTRIN) TAB PO SCH (09:16)
[2021-04-17] MEDS: lisINopril 20 MG (PRINIVIL) TABLET PO SCH (09:16)
[2021-04-17] MEDS: LORATADINE (CLARITIN) 10 MG TAB PO SCH (09:17)
[2021-04-17] MEDS: guaiFENesin/DM (ROBITUSSIN DM) 10 ML UDC PO PRN ×3 (09:25→23:32)
[2021-04-17] MEDS: COLESTIPOL 1 GM (COLESTID) TAB PO SCH ×2 (09:25→20:02)
--- NOTE | 2021-04-17 09:38 | Progress Note - Hospitalist ---
Subjective HPI/CC On Admission Date Seen by Provider: Apr 17, 2021 Time Seen by Provider: 09:35 Pt is a 51yoCF with a PMH of fibromyalgia, NIDDMII, HLD, chronic diarrhea who presented to the ER duet o shortness of breath and weakness. She became symptomatic with COVID on 04/09 and tested positive on 04/10. She is unvaccinated against COVID. She received Regen-Cov on 04/14. Despite this she has continued to not feel well and was mildly hypoxic so admitted for further management. She states she had a rough night and did not sleep well. Otherwise no complaints. Subjective/Events-last exam Pt report feeling much better today. No complaints. Breathing easier and overall feels better. Would like to shower but otherwise not concerns. Eating breakfast. No further BMs overnight. Focused Exam Lactate Level 04/15/21 18:30: Lactic Acid Level 2.28*H 04/15/21 22:03: Lactic Acid Level 1.30 Objective Exam Vital Signs Vital Signs Date Time Temp Pulse Resp B/P (MAP) Pulse Ox O2 Delivery O2 Flow Rate FiO2 04/17/21 09:17 36.7 95 18 152/105 (121) 98 Room Air 04/17/21 01:57 1.00 04/15/21 17:15 90 Capillary Refill : Less Than 3 Seconds General Appearance: No Apparent Distress, WD/WN Respiratory: No Accessory Muscle Use, Crackles, Rhonci Cardiovascular: Regular Rate, Rhythm, No Murmur Gastrointestinal: Normal Bowel Sounds, Non Tender, Soft Neurologic/Psychiatric: Alert, Oriented x3 Results/Procedures Lab Laboratory Tests 04/17/21 03:15 Patient resulted labs reviewed. Imaging: Reviewed Imaging Report Assessment/Plan Assessment and Plan Assess & Plan/Chief Complaint Acute hypoxic respiratory failure due to COVID19 (pa02 32 on RA) Continue oxygen supplementation to keeps sats >90- was on room air when I saw patient Continue decadron Continue remdesivir Already received monocloncal antibody so no indication for convalescent plasma MAT protocol Lovenox ppx NIDDMII Continue SSI Continue Levemir but increase to 30 units HS HLD Fibromyalgia Obesity HTN No acute needs, continue home meds DVt ppx: Lovenox NIDA IQBAL MD Apr 17, 2021 09:38
[2021-04-17] MEDS: RT--FLUTICASONE/SALMETEROL 113-14 (AIRDUO RespiCLICK) IH SCH ×2 (10:05→22:35)
[2021-04-17] MEDS: IBUPROFEN 800 MG (MOTRIN) TAB PO PRN ×2 (13:53→23:33)
[2021-04-17] MEDS: AZITHROMYCIN 500 MG/NS 250 ML IVPB IV SCH ×2 (19:56)
[2021-04-17] MEDS: cefTRIAXone 1,000 MG/SWFI 10 ML IV PUSH IV SCH ×2 (19:56)
[2021-04-17] MEDS: meTOprolol TARTRATE 50 MG (LOPRESSOR) TAB PO SCH (20:01)
[2021-04-17] MEDS: OXYBUTYNIN (DITROPAN) 5 MG TAB PO SCH (20:01)
[2021-04-17] MEDS: NITROFURANTOIN 50 MG (MACRODANTIN) CAP PO SCH (20:01)
[2021-04-18] MEDS: RT-ALBUTEROL INHALER HFA (VENTOLIN HFA) 18 GM IH SCH ×2 (02:48→09:56)
[2021-04-18 04:26] LABS: ALBUMIN 3.2 GM/DL (3.2-4.5)
[2021-04-18 04:27] LABS: CHLORIDE 108 MMOL/L (98-107); SODIUM 142 MMOL/L (135-145)
[2021-04-18 04:28] LABS: CALCIUM 8.2 MG/DL (8.5-10.1)
[2021-04-18 04:29] LABS: GLUCOSE 177 MG/DL (70-105); TOTAL PROTEIN 5.9 GM/DL (6.4-8.2)
[2021-04-18 04:30] LABS: CARBON DIOXIDE 21 MMOL/L (21-32); HEMATOCRIT 35 % (35-52); HEMOGLOBIN 11.5 g/dL (11.5-16.0); MEAN CORPUSCULAR HEMOGLOBIN 28 pg (25-34); MEAN CORPUSCULAR HGB CONC 33 g/dL (32-36); MEAN CORPUSCULAR VOLUME 84 fL (80-99); MEAN PLATELET VOLUME 10.2 fL (9.0-12.2); PLATELET COUNT 217 10^3/uL (130-400); WHITE BLOOD COUNT 5.8 10^3/uL (4.3-11.0)
[2021-04-18 04:31] LABS: BILIRUBIN,TOTAL 0.6 MG/DL (0.1-1.0)
[2021-04-18 04:32] LABS: ALKALINE PHOSPHATASE 55 U/L (40-136)
[2021-04-18 04:33] LABS: CREATININE SERUM 0.62 MG/DL (0.60-1.30); GFR ESTIMATED > 60
[2021-04-18 04:34] LABS: BUN/CREATININE RATIO 27
[2021-04-18 04:36] LABS: ALANINE AMINOTRANSFERASE 25 U/L (0-55)
[2021-04-18] MEDS: inSUlin ASPART (NovoLOG) 1 UNIT/0.01 ML (CHARGE PER UNIT) SC SCH ×4 (06:43→12:40)
[2021-04-18] MEDS: dexAMETHasone 6 MG TAB (DECADRON) PO SCH (06:44)
[2021-04-18] MEDS: REMDESIVIR INJ 100 MG in NS (IVPB) 230 ML IV SCH (06:44)
[2021-04-18] MEDS ORDERED: KCL 10 MEQ TAB (MICRO K) PO ONE (08:59)
[2021-04-18] MEDS: ASPIRIN E.C. 81 MG (ECOTRIN) TAB PO SCH (09:16)
[2021-04-18] MEDS: guaiFENesin/DM (ROBITUSSIN DM) 10 ML UDC PO PRN (09:16)
[2021-04-18] MEDS: ENOXAPARIN 40 MG/0.4 ML (LOVENOX) SYR SC SCH (09:16)
[2021-04-18] MEDS: lisINopril 20 MG (PRINIVIL) TABLET PO SCH (09:16)
[2021-04-18] MEDS: ACETAMINOPHEN 500 MG TAB (TYLENOL) PO PRN (09:16)
[2021-04-18] MEDS: LORATADINE (CLARITIN) 10 MG TAB PO SCH (09:17)
[2021-04-18] MEDS: COLESTIPOL 1 GM (COLESTID) TAB PO SCH (09:17)
[2021-04-18] MEDS: KCL 10 MEQ TAB (MICRO K) PO SCH ×2 (09:17→12:44)
[2021-04-18] MEDS: RT--FLUTICASONE/SALMETEROL 113-14 (AIRDUO RespiCLICK) IH SCH (09:56)
[2021-04-18] MEDS ORDERED: INSU100I29 SQ (10:53)
[2021-04-18] MEDS ORDERED: BLOO1EAC87 MC (10:53)
[2021-04-18] MEDS ORDERED: AZIT250T12 PO (10:53)
[2021-04-18] MEDS ORDERED: ASPI-1238 PO (10:53)
[2021-04-18] MEDS ORDERED: METF-397 PO (10:53)
--- NOTE | 2021-04-18 10:53 | Discharge Summary ---
Diagnosis/Chief Complaint Date of Admission Apr 15, 2021 at 19:40 Date of Discharge Admission Diagnosis Acute hypoxic respiratory failure due to COVID19 Primary Care Brock French DO Discharge Summary Discharge Physical Exam Allergies: Coded Allergies: No Known Drug Allergies (Verified , 07/18/16) Vitals & I&Os Vital Signs Date Time Temp Pulse Resp B/P (MAP) Pulse Ox O2 Delivery O2 Flow Rate FiO2 04/18/21 09:56 96 Room Air 04/18/21 08:50 37.0 74 16 133/87 (102) 04/17/21 01:57 1.00 04/15/21 17:15 90 Hospital Course Labs (last 24 hrs) Laboratory Tests 04/17/21 16:10: Glucometer 348H 04/17/21 21:12: Glucometer 292H 04/17/21 21:32: Glucometer 256H 04/18/21 03:55: White Blood Count 5.8, Red Blood Count 4.13, Hemoglobin 11.5, Hematocrit 35, Mean Corpuscular Volume 84, Mean Corpuscular Hemoglobin 28, Mean Corpuscular Hemoglobin Concent 33, Red Cell Distribution Width 12.7, Platelet Count 217, Mean Platelet Volume 10.2, Sodium Level 142, Potassium Level 3.0L, Chloride Level 108H, Carbon Dioxide Level 21, Anion Gap 13, Blood Urea Nitrogen 17, Creatinine 0.62, Estimat Glomerular Filtration Rate > 60, BUN/Creatinine Ratio 27, Glucose Level 177H, Calcium Level 8.2L, Corrected Calcium 8.8, Total Bilir ubin 0.6, Aspartate Amino Transf (AST/SGOT) 24, Alanine Aminotransferase (ALT/SGPT) 25, Alkaline Phosphatase 55, Total Protein 5.9L, Albumin 3.2 04/18/21 06:41: Glucometer 153H Microbiology 04/15/21 Gram Stain - Final, Complete 04/15/21 Sputum Culture - Final, Complete Usual upper respiratory rufino 04/15/21 Blood Culture - Preliminary, Resulted No growth Patient resulted labs reviewed. Pending Labs Laboratory Tests 04/18/21 03:55: White Blood Count 5.8, Red Blood Count 4.13, Hemoglobin 11.5, Hematocrit 35, Mean Corpuscular Volume 84, Mean Corpuscular Hemoglobin 28, Mean Corpuscular Hemoglobin Concent 33, Red Cell Distribution Width 12.7, Platelet Count 217, Mean Platelet Volume 10.2, Sodium Level 142, Potassium Level 3.0, Chloride Level 108, Carbon Dioxide Level 21, Anion Gap 13, Blood Urea Nitrogen 17, Creatinine 0.62, Estimat Glomerular Filtration Rate > 60, BUN/Creatinine Ratio 27, Glucose Level 177, Calcium Level 8.2, Corrected Calcium 8.8, Total Bilirubin 0.6, Aspartate Amino Transf (AST/SGOT) 24, Alanine Aminotransferase (ALT/SGPT) 25, Alkaline Phosphatase 55, Total Protein 5.9, Albumin 3.2 04/18/21 06:41: Glucometer 153 Imaging: Reviewed Imaging Report Discharge Home Medications: Active Scripts Active Reported Nitrofurantoin (Nitrofurantoin Macrocrystal) 50 Mg Capsule 50 Mg PO HS Colestipol HCl 1 Gm Tablet 1 Gm PO BID Ventolin Hfa (Albuterol Sulfate) 1 Puff Puff 1 Puff INH Q4H PRN Levocetirizine Dihydrochloride 5 Mg Tablet 5 Mg PO DAILY Progesterone (Progesterone,Micronized) 100 Mg Capsule 100 Mg PO HS Fluticasone-Salmeterol 100-50 (Fluticasone Propion/Salmeterol) 1 Each Blst.w.dev 1 Puff INH BID Metoprolol Tartrate 100 Mg Tablet 100 Mg PO HS Oxybutynin Chloride 5 Mg Tablet 5 Mg PO HS Lisinopril 20 Mg Tablet 20 Mg PO DAILY Instructions to patient/family Please see electronic discharge instructions given to patient. NIDA IQBAL MD Apr 18, 2021 10:53
[2021-04-18] MEDS: IBUPROFEN 800 MG (MOTRIN) TAB PO PRN (12:42)
[2021-04-18 12:51] VITALS: BP 141/87
[2021-04-19] MEDS ORDERED: MAGNESIUM 1 GM/100 ML IVPB 100 ML IV SCH (06:00)
[2021-04-19] MEDS ORDERED: KCL 20 MEQ TAB (K-DUR) PO SCH (06:00)
[2021-04-19] MEDS ORDERED: POTASSIUM CL 10MEQ/50ML IVPB 50 ML IV SCH (06:00)
== END 2021-04-18 14:23 | disposition home or self-care (01) | DRG 177 ==
LOC: EDUNIT# 15:51 → ER 15:54 → CSD 19:40
PROVIDERS: ADMIT Internal Medicine; ATTEND Internal Medicine
PROC: XW033E5 Introduction of Remdesivir Anti-infective into Peripheral Vein, Percutaneous Approach, New Technology Group 5 (ICD-10-PCS; principal; 2021-04-16)
DX: U07.1 COVID-19 (principal); J12.82 Pneumonia due to coronavirus disease 2019; J96.01 Acute respiratory failure with hypoxia; E87.2 Acidosis; N39.0 Urinary tract infection, site not specified; E83.42 Hypomagnesemia; E11.65 Type 2 diabetes mellitus with hyperglycemia; M79.7 Fibromyalgia; E78.5 Hyperlipidemia, unspecified; K21.9 Gastro-esophageal reflux disease without esophagitis; G89.29 Other chronic pain; M54.9 Dorsalgia, unspecified; F41.9 Anxiety disorder, unspecified; F32.9 Major depressive disorder, single episode, unspecified; E66.9 Obesity, unspecified; Z68.29 Body mass index [BMI] 29.0-29.9, adult; Z79.84 Long term (current) use of oral hypoglycemic drugs; Z79.899 Other long term (current) drug therapy
CPT/HCPCS: 36415; 71045; 80048; 80053; 80061; 80076; 81000; 82010; 82550; 82553; 82805; 82947; 83036; 83605; 83615; 83735; 83874; 83880; 84145; 84484; 85025; 85027; 85379; 85610; 85652; 85730; 86141; 87040; 87070; 87088; 87205; 93005; 93041; 94640; 94664; 94760; 94761

== ENCOUNTER 2021-05-30 12:50 | Emergency (ER) | payer MEDICARE, BC, MEDICAID ==
[~2021-05-30] VITALS: Ht 165 cm; Wt 80.0 kg
[~2021-05-30 12:50] MED LIST changes: +ASPI-1238 PO; +AZIT250T12 PO; +BLOO1EAC87 MC; +COLE1TAB PO; +FLUT1BLS11 INH; +INSU100I29 SQ; +LEVO5TAB12 PO; +LISI20TA26 PO; +METO100T12 PO; +NITR50CA PO; +OXYB5TAB13 PO; +PROG100C11 PO; +RT-ALBUINH INH
[2021-05-30] MEDS ORDERED: NS IV 1000 ML 1,000 ML IV SCH (13:15)
[2021-05-30] MEDS ORDERED: fentaNYL INJ 100 MCG/2 ML AMP IVP ONE (13:15)
[2021-05-30] MEDS ORDERED: GLYCOPYRROLATE 0.2 MG/ML (ROBINUL) 2 ML VIAL IV ONE (13:15)
--- NOTE | 2021-05-30 13:16 | ED Abdominal Pain ---
General Stated Complaint: PAIN ABD AND R SIDE,NAUSEA Source of Information: Patient Exam Limitations: No Limitations History of Present Illness Date Seen by Provider: May 30, 2021 Time Seen by Provider: 13:00 Initial Comments Patient is a 51-year-old female who presents to the emergency department today with a chief complaint of sudden onset of right flank pain during the night that woke her from sleep. Patient has never had anything like this before. Nothing makes it any better or any worse. Patient states that she has had nausea with dry heaves a couple of times. Pain radiates down into the right lower quadrant. No abnormal stools she states she has chronic diarrhea. Nothing black nothing bloody. Denies dysuria urgency or frequency. Denies blood in her urine. Is a diabetic. No history of kidney stones. history of abdominoplasty and uterine ablation No fevers, chills. Patient had Covid in April. All other review of systems reviewed and negative except as stated. Timing/Duration: 12-24 Hours Severity/Quality: Severe, Sharp, Stabbing Location: RUQ Radiation: RLQ Activities at Onset: None Associated Symptoms: Nausea/Vomiting Allergies and Home Medications Allergies Coded Allergies: No Known Drug Allergies (Verified , 07/18/16) Home Medications Albuterol Sulfate 1 Puff Puff, 1 PUFF INH Q4H PRN for SHORTNESS OF BREATH, (Reported) Aspirin 81 Mg Tablet.dr, 81 MG PO DAILY Prescribed by: NIDA IQBAL on 04/18/21 1053 Azithromycin 250 Mg Tablet, 250 MG PO DAILY Prescribed by: NIDA IQBAL on 04/18/21 1053 Colestipol HCl 1 Gm Tablet, 1 GM PO BID, (Reported) Fluticasone Propion/Salmeterol 1 Each Blst.w.dev, 1 PUFF INH BID, (Reported) Hydrocodone/Acetaminophen 1 Each Tablet, 1 TAB PO Q6H PRN for PAIN-MODERATE (5- 7) Prescribed by: BELÉN BYRD on 05/30/21 1452 Insulin Detemir 100 Unit/1 Ml Insuln.pen, 20 UNIT SQ HS Prescribed by: NIDA IQBAL on 04/18/21 1053 Levocetirizine Dihydrochloride 5 Mg Tablet, 5 MG PO DAILY, (Reported) Lisinopril 20 Mg Tablet, 20 MG PO DAILY, (Reported) Metformin HCl 500 Mg Tablet, 500 MG PO BID Prescribed by: NIDA IQBAL on 04/18/21 1053 Metoprolol Tartrate 100 Mg Tablet, 100 MG PO HS, (Reported) Nitrofurantoin Macrocrystal 50 Mg Capsule, 50 MG PO HS, (Reported) Ondansetron 4 Mg Tab.rapdis, 4 MG PO Q8H Prescribed by: BELÉN BYRD on 05/30/21 1453 Oxybutynin Chloride 5 Mg Tablet, 5 MG PO HS, (Reported) Progesterone,Micronized 100 Mg Capsule, 100 MG PO HS, (Reported) Tamsulosin HCl 0.4 Mg Cap, 0.4 MG PO DAILY Prescribed by: BELÉN BYRD on 05/30/21 1452 Patient Home Medication List Home Medication List Reviewed: Yes Review of Systems Review of Systems Constitutional: see HPI EENTM: No Symptoms Reported Respiratory: No Symptoms Reported Cardiovascular: No Symptoms Reported Gastrointestinal: Abdominal Pain Genitourinary: No Symptoms Reported Musculoskeletal: no symptoms reported Skin: no symptoms reported Psychiatric/Neurological: No Symptoms Reported All Other Systems Reviewed Negative Unless Noted: Yes Past Iiabpgy-Nuapji-Ovhysz Hx Seasonal Allergies Seasonal Allergies: Yes Past Medical History Asthma Currently Using CPAP: Yes Currently Using BIPAP: No Reproductive Disorders: No Female Reproductive Disorders: Denies Sexually Transmitted Disease: No HIV/AIDS: No Gastroesophageal Reflux, Liver Disease/Jaundice, Chronic Diarrhea Degenerate Disk Disease, Arthritis, Fibromyalgia, Chronic Back Pain Diabetes, Non-Insulin dep Loss of Vision: Bilateral Hearing Impairment: Denies Anxiety, Depression Adverse Reaction/Blood Tranf: No Physical Exam Vital Signs Vital Signs - First Documented 05/30/21 13:26 Temp 36.4 Pulse 104 Resp 22 B/P (MAP) 160/101 (120) Pulse Ox 98 O2 Delivery Room Air Capillary Refill : Height/Weight/BMI Height: 5'5.00" Weight: 180lbs. 0.0oz. 81.606583me; 30.70 BMI Method: General Appearance: WD/WN, moderate distress HEENT: PERRL/EOMI Respiratory: lungs clear, normal breath sounds, no respiratory distress, no accessory muscle use Cardiovascular: regular rate, rhythm Gastrointestinal: soft, abnormal bowel sounds (hypoactive), tenderness (mild right flank tenderness, no overlying rashes, +right CVA tenderness) Extremities: normal range of motion, normal inspection Neurologic/Psychiatric: alert, normal mood/affect, oriented x 3 Skin: normal color, warm/dry Progress/Results/Core Measures Results/Orders Lab Results Laboratory Tests Test 05/30/21 13:20 05/30/21 13:45 05/30/21 13:49 Range/Units White Blood Count 7.4 4.3-11.0 10^3/uL Red Blood Count 4.74 3.80-5.11 10^6/uL Hemoglobin 13.7 11.5-16.0 g/dL Hematocrit 40 35-52 % Mean Corpuscular Volume 84 80-99 fL Mean Corpuscular Hemoglobin 29 25-34 pg Mean Corpuscular Hemoglobin Concent 34 32-36 g/dL Red Cell Distribution Width 12.5 10.0-14.5 % Platelet Count 219 130-400 10^3/uL Mean Platelet Volume 10.4 9.0-12.2 fL Immature Granulocyte % (Auto) 0 % Neutrophils (%) (Auto) 59 42-75 % Lymphocytes (%) (Auto) 34 12-44 % Monocytes (%) (Auto) 5 0-12 % Eosinophils (%) (Auto) 1 0-10 % Basophils (%) (Auto) 0 0-10 % Neutrophils # (Auto) 4.3 1.8-7.8 10^3/uL Lymphocytes # (Auto) 2.5 1.0-4.0 10^3/uL Monocytes # (Auto) 0.4 0.0-1.0 10^3/uL Eosinophils # (Auto) 0.1 0.0-0.3 10^3/uL Basophils # (Auto) 0.0 0.0-0.1 10^3/uL Immature Granulocyte # (Auto) 0.0 0.0-0.1 10^3/uL Sodium Level 137 135-145 MMOL/L Potassium Level 3.8 3.6-5.0 MMOL/L Chloride Level 103 98-107 MMOL/L Carbon Dioxide Level 15 L 21-32 MMOL/L Anion Gap 19 H 5-14 MMOL/L Blood Urea Nitrogen 11 7-18 MG/DL Creatinine 0.72 0.60-1.30 MG/DL Estimat Glomerular Filtration Rate 86 BUN/Creatinine Ratio 15 Glucose Level 263 H 70-105 MG/DL Calcium Level 9.3 8.5-10.1 MG/DL Urine Color YELLOW Urine Clarity CLEAR Urine pH 5.5 5-9 Urine Specific Motley >=1.030 1.016-1.022 Urine Protein NEGATIVE NEGATIVE Urine Glucose (UA) 2+ H NEGATIVE Urine Ketones TRACE H NEGATIVE Urine Nitrite NEGATIVE NEGATIVE Urine Bilirubin NEGATIVE NEGATIVE Urine Urobilinogen 0.2 < = 1.0 MG/DL Urine Leukocyte Esterase NEGATIVE NEGATIVE Urine RBC (Auto) 3+ H NEGATIVE Urine RBC 10-25 H /HPF Urine WBC NONE /HPF Urine Squamous Epithelial Cells RARE /HPF Urine Crystals NONE /LPF Urine Bacteria TRACE /HPF Urine Casts NONE /LPF Urine Mucus NEGATIVE /LPF Urine Culture Indicated NO Glucometer 254 H 70-110 MG/DL My Orders Orders - BELÉN BYRD MD Ed Iv/Invasive Line Start (05/30/21 13:09) Cbc With Automated Diff (05/30/21 13:09) Basic Metabolic Panel (05/30/21 13:09) Accucheck Stat ONCE (05/30/21 13:09) Abdomen/Kub 1view (05/30/21 13:09) Ct Abdomen/Pelvis Wo (05/30/21 13:09) Ns Iv 1000 Ml (Sodium Chloride 0.9%) (05/30/21 13:15) Fentanyl Inj (Sublimaze Injection) (05/30/21 13:15) Glycopyrrolate Injection (Robinul Inject (05/30/21 13:15) Morphine Injection (Morphine Injection (05/30/21 13:29) Ondansetron Injection (Zofran Injectio (05/30/21 13:45) Morphine Injection (Morphine Injection (05/30/21 13:31) Ketorolac Injection (Toradol Injection) (05/30/21 14:00) Hydrocodone/Apap 7.5/325 Tab (Lortab 7. (05/30/21 15:00) Medications Given in ED Current Medications Medications Dose Ordered Sig/Víctor Route Start Time Stop Time Status Last Admin Dose Admin Acetaminophen/ Hydrocodone Bitart 1 ea ONCE ONCE PO 05/30/21 15:00 05/30/21 15:01 DC 05/30/21 15:03 1 EA Fentanyl Citrate 50 mcg ONCE ONCE IVP 05/30/21 13:15 05/30/21 13:16 DC 05/30/21 13:21 50 MCG Glycopyrrolate 0.2 mg ONCE ONCE IV 05/30/21 13:15 05/30/21 13:16 DC 05/30/21 13:33 0.2 MG Ketorolac Tromethamine 15 mg ONCE ONCE IVP 05/30/21 14:00 05/30/21 14:01 DC 05/30/21 14:00 15 MG Ondansetron HCl 4 mg ONCE ONCE IVP 05/30/21 13:45 05/30/21 13:46 DC 05/30/21 13:41 4 MG Vital Signs/I&O 05/30/21 05/30/21 13:26 14:03 Temp 36.4 36.4 Pulse 104 101 Resp 22 18 B/P (MAP) 160/101 (120) 135/80 (98) Pulse Ox 98 95 O2 Delivery Room Air Room Air Diagnostic Imaging Diagonstic Imaging: Xray, CT Plain Films/CT/US/NM/MRI: abdomen Comments [facility], [place] NAME: PAULINO CAMARENA [facility] REC#: [id number] PT STATUS: REG ER : 1970 PHYSICIAN: BELÉN BYRD MD ADMIT DATE: 05/30/21/ER Draft Date of Exam:05/30/21 ABDOMEN/KUB 1VIEW EXAM: Supine abdomen at 2:22 PM INDICATION: Right flank pain There are no prior plain film examinations available for comparison. The CT abdomen/pelvis exam performed just prior to this study did show obstruction of the right collecting system due to a small calculus in the distal right ureter. That calculus may be faintly evident on this study. As noted on the CT exam, there are also a few phleboliths low in the pelvis. The 4 mm nonobstructive calculus overlying the left renal pelvis seen previously is partially visualized. No other pathological calcification is seen. IMPRESSION: 1. The obstructive calculus involving the distal right ureter seen on the CT exam is barely visible. 2. The nonobstructing calculus in the left kidney is again noted. Dictated on workstation # [id number] Dict: 05/30/21 1424 Trans: 05/30/21 1437 [facility] [id number] Interpreted by: GIOVANNI ARCE MD Electronically signed by: [facility]. [place], [place] NAME: PAULINO CAMARENA [facility] REC#: [id number] PT STATUS: REG ER : 1970 PHYSICIAN: BELÉN BYRD MD ADMIT DATE: 05/30/21/ER Signed Date of Exam:05/30/21 CT ABDOMEN/PELVIS WO PROCEDURE: CT abdomen and pelvis without contrast. TECHNIQUE: Multiple contiguous axial images were obtained through the abdomen and pelvis without the use of intravenous contrast. Auto Exposure Controls were utilized during the CT exam to meet ALARA standards for radiation dose reduction. INDICATION: Right flank pain for six hours. COMPARISON: 02/05/2016. FINDINGS: There are subtle patchy groundglass opacities in the lung bases. The heart is normal in size. The liver demonstrates diffuse hepatic steatosis. Cholecystectomy clips are noted. The spleen appears normal. The pancreas is normal. The adrenal glands are normal. There is moderate right hydroureteronephrosis with an obstructing calculus in the distal right ureter measuring 5 mm, located about 6 cm proximal to the ureterovesicular junction. There is right perirenal fat stranding. There is a nonobstructing calculus in the left kidney which measures 7 mm in diameter. There is no left hydronephrosis. No lymphadenopathy is seen. The aorta is normal in caliber. The appendix is normal. The bowel loops are nondistended without obstruction. No free fluid or free air is seen. No acute osseous abnormality is identified. IMPRESSION: 1. Obstructing 5 mm calculus in the distal right ureter, causing moderate hydroureteronephrosis. 2. Nonobstructing calculus in the left kidney. 3. Subtle groundglass opacities in the lung bases. This can be seen with infection, including viral infections such as COVID. Please correlate with history. 4. Hepatic steatosis. Dictated by: Dictated on workstation # [id number] Dict: 05/30/21 1422 Trans: 05/30/21 1444 [id number] Interpreted by: TALI MALONE MD Electronically signed by: TALI MALONE MD 05/30/21 1444 Departure Impression Primary Impression: Right kidney stone Disposition: 01 HOME, SELF-CARE Condition: Stable Departure-Patient Inst. Decision time for Depature: 14:50 Referrals: CIARA MONTENEGRO DO (PCP/Family) Primary Care Physician HERBERT YANG MD Patient Instructions: Kidney Stones (DC) Add. Discharge Instructions: Drink lots of fluids to stay well-hydrated. Take the Flomax daily. Pain medications every 4-6 hours as needed for severe pain you can alternate with ibuprofen. Strain your urine until you passed your kidney stone. Please follow-up with urology. I have given you contact information for Dr Yang. Call tomorrow for a follow up appointment. Return to the emergency room for pain that is not controlled by your at home medications, fever, vomiting or any other emergent concerning symptoms. Scripts Hydrocodone/Acetaminophen (Hydrocodone-Acetamin 5-325 mg) 1 Each Tablet 1 TAB PO Q6H PRN for PAIN-MODERATE (5-7), #15 TAB Prov: BELÉN BYRD MD 05/30/21 Ondansetron (Ondansetron Odt) 4 Mg Tab.rapdis 4 MG PO Q8H PRN for nausea, #15 TAB Prov: BELÉN BYRD MD 05/30/21 Tamsulosin HCl (Flomax) 0.4 Mg Cap 0.4 MG PO DAILY for 14 Days, #14 CAP Prov: BELÉN BYRD MD 05/30/21 BELÉN BYRD MD May 30, 2021 13:16
[2021-05-30 13:29] LABS: BASOPHILS % (AUTO) 0 % (0-10); EOSINOPHILS # (AUTO) 0.1 10^3/uL (0.0-0.3); EOSINOPHILS % (AUTO) 1 % (0-10); HEMATOCRIT 40 % (35-52); HEMOGLOBIN 13.7 g/dL (11.5-16.0); LYMPHOCYTES # (AUTO) 2.5 10^3/uL (1.0-4.0); LYMPHOCYTES % (AUTO) 34 % (12-44); MEAN CORPUSCULAR HEMOGLOBIN 29 pg (25-34); MEAN CORPUSCULAR HGB CONC 34 g/dL (32-36); MEAN CORPUSCULAR VOLUME 84 fL (80-99); MEAN PLATELET VOLUME 10.4 fL (9.0-12.2); MONOCYTES # (AUTO) 0.4 10^3/uL (0.0-1.0); MONOCYTES % (AUTO) 5 % (0-12); NEUTROPHILS # (AUTO) 4.3 10^3/uL (1.8-7.8); NEUTROPHILS % (AUTO) 59 % (42-75); PLATELET COUNT 219 10^3/uL (130-400); WHITE BLOOD COUNT 7.4 10^3/uL (4.3-11.0)
[2021-05-30] MEDS ORDERED: morphine INJ 10 MG/ML 1ML (SYR OR VIAL) IVP STA (13:29)
[2021-05-30] MEDS ORDERED: morphine INJ 10 MG/ML 1ML (SYR OR VIAL) ONE (13:31)
[2021-05-30 13:39] LABS: CALCIUM 9.3 MG/DL (8.5-10.1); POTASSIUM 3.8 MMOL/L (3.6-5.0)
[2021-05-30 13:43] LABS: CREATININE SERUM 0.72 MG/DL (0.60-1.30)
[2021-05-30] MEDS ORDERED: ONDANSETRON 4 MG/2 ML (SDV) Z0FRAN IVP ONE (13:45)
[2021-05-30 13:50] LABS: BILIRUBIN,URINE NEGATIVE (NEGATIVE); CLARITY,URINE CLEAR; COLOR,URINE YELLOW; GLUCOSE, URINE (UA) 2+ (NEGATIVE); KETONES,URINE TRACE (NEGATIVE); LEUKOCYTE ESTERASE ,URINE NEGATIVE (NEGATIVE); NITRITE,URINE NEGATIVE (NEGATIVE); PH,URINE 5.5 (5-9); PROTEIN,URINE NEGATIVE (NEGATIVE)
[2021-05-30 13:58] LABS: BACTERIA,URINE TRACE /HPF; SQUAMOUS EPITHELIAL CELL,UR RARE /HPF
[2021-05-30] MEDS ORDERED: KETOROLAC 30 MG/ML VIAL IVP ONE (14:00)
--- NOTE | 2021-05-30 14:38 | Diagnostic Imaging Report ---
EXAM: Supine abdomen at 2:22 PM INDICATION: Right flank pain There are no prior plain film examinations available for comparison. The CT abdomen/pelvis exam performed just prior to this study did show obstruction of the right collecting system due to a small calculus in the distal right ureter. That calculus may be faintly evident on this study. As noted on the CT exam, there are also a few phleboliths low in the pelvis. The 4 mm nonobstructive calculus overlying the left renal pelvis seen previously is partially visualized. No other pathological calcification is seen. IMPRESSION: 1. The obstructive calculus involving the distal right ureter seen on the CT exam is barely visible on this exam. 2. The nonobstructing calculus in the left kidney is again noted. Dictated by: Dictated on workstation # [id number]
--- NOTE | 2021-05-30 14:39 | Diagnostic Imaging Report ---
PROCEDURE: CT abdomen and pelvis without contrast. TECHNIQUE: Multiple contiguous axial images were obtained through the abdomen and pelvis without the use of intravenous contrast. Auto Exposure Controls were utilized during the CT exam to meet ALARA standards for radiation dose reduction. INDICATION: Right flank pain for six hours. COMPARISON: 02/05/2016. FINDINGS: There are subtle patchy groundglass opacities in the lung bases. The heart is normal in size. The liver demonstrates diffuse hepatic steatosis. Cholecystectomy clips are noted. The spleen appears normal. The pancreas is normal. The adrenal glands are normal. There is moderate right hydroureteronephrosis with an obstructing calculus in the distal right ureter measuring 5 mm, located about 6 cm proximal to the ureterovesicular junction. There is right perirenal fat stranding. There is a nonobstructing calculus in the left kidney which measures 7 mm in diameter. There is no left hydronephrosis. No lymphadenopathy is seen. The aorta is normal in caliber. The appendix is normal. The bowel loops are nondistended without obstruction. No free fluid or free air is seen. No acute osseous abnormality is identified. IMPRESSION: 1. Obstructing 5 mm calculus in the distal right ureter, causing moderate hydroureteronephrosis. 2. Nonobstructing calculus in the left kidney. 3. Subtle groundglass opacities in the lung bases. This can be seen with infection, including viral infections such as COVID. Please correlate with history. 4. Hepatic steatosis. Dictated by: Dictated on workstation # [id number]
[2021-05-30] MEDS ORDERED: TMSL.4C PO ×2 (14:52→15:06)
[2021-05-30] MEDS ORDERED: ACHD5005 PO ×2 (14:52→15:06)
[2021-05-30] MEDS ORDERED: ONDA4TAB11 PO ×2 (14:53→15:06)
[2021-05-30] MEDS ORDERED: HYDROcodone/APAP 7.5 MG/325 MG (LORTAB, LORCET PLUS) TABLET PO ONE (15:00)
[2021-05-30 15:29] VITALS: BP 140/90
== END 2021-05-30 15:31 | disposition home or self-care (01) ==
LOC: EDUNIT# 12:50 → ER 12:53
DX: N13.2 Hydronephrosis with renal and ureteral calculous obstruction (principal); J45.909 Unspecified asthma, uncomplicated; Z98.2 Presence of cerebrospinal fluid drainage device; E11.9 Type 2 diabetes mellitus without complications; Z86.16 Personal history of COVID-19; Z79.84 Long term (current) use of oral hypoglycemic drugs; Z79.899 Other long term (current) drug therapy
CPT/HCPCS: 36415; 74018; 74176; 80048; 81000; 82947; 85025; 96361; 96374; 96375

== ENCOUNTER 2021-06-02 12:39 | Emergency (ER) | payer MEDICARE, BC, MEDICAID ==
[~2021-06-02] VITALS: Ht 165 cm; Wt 81.8 kg
[~2021-06-02 12:39] MED LIST changes: +ONDA4TAB11 PO; +TMSL.4C PO
--- NOTE | 2021-06-02 13:08 | ED Abdominal Pain ---
General Chief Complaint: Abdominal/GI Problems Stated Complaint: BACK PAIN,KIDNEY STONES Source of Information: Patient Exam Limitations: No Limitations History of Present Illness Date Seen by Provider: Jun 02, 2021 Time Seen by Provider: 12:50 Initial Comments Patient is a 51-year-old female who returns to the emergency department with recurrent complaint of severe right flank pain. Patient was seen by me 2 or 3 days ago complaining of similar complaints and was ultimately diagnosed with a 5 mm distal right ureteral stone. No evidence of infection on urinalysis. Stable vital signs. Treated with fluids, pain medications and Toradol. Sent home on Flomax, hydrocodone and Zofran. Patient states that she was feeling pretty good after her discharge until this morning when she woke up with an acute worsening of her pain. She describes urinary hesitancy and dribbling urine. States she thinks she has been fighting a urinary tract infection as well for a couple of months. No fevers, chills. Positive nausea with dry heaves. No diarrhea. All other review of systems reviewed and negative except as stated above Timing/Duration: 4-6 Hours Severity/Quality: Severe, Aching, Sharp, Stabbing Location: Flank (right) Associated Symptoms: Back Pain, Nausea/Vomiting Allergies and Home Medications Allergies Coded Allergies: No Known Drug Allergies (Verified , 07/18/16) Home Medications Albuterol Sulfate 1 Puff Puff, 1 PUFF INH Q4H PRN for SHORTNESS OF BREATH, (Reported) Aspirin 81 Mg Tablet.dr, 81 MG PO DAILY Prescribed by: NIDA IQBAL on 04/18/21 1053 Azithromycin 250 Mg Tablet, 250 MG PO DAILY Prescribed by: NIDA IQBAL on 04/18/21 1053 Cephalexin 500 Mg Tablet, 500 MG PO TID Prescribed by: BELÉN BYRD on 06/02/21 1448 Colestipol HCl 1 Gm Tablet, 1 GM PO BID, (Reported) Fluconazole 150 Mg Tablet, 150 MG PO ONCE repeat dose at the end of antibiotics Prescribed by: BELÉN BYRD on 06/02/21 1500 Fluticasone Propion/Salmeterol 1 Each Blst.w.dev, 1 PUFF INH BID, (Reported) Hydrocodone/Acetaminophen 1 Each Tablet, 1 TAB PO Q6H PRN for PAIN-MODERATE (5- 7) Prescribed by: BELÉN BYRD on 05/30/21 1507 Hydrocodone/Acetaminophen 1 Each Tablet, 1 TAB PO Q6H PRN for PAIN-MODERATE (5- 7) Prescribed by: BELÉN BYRD on 06/02/21 1501 Insulin Detemir 100 Unit/1 Ml Insuln.pen, 20 UNIT SQ HS Prescribed by: NIDA IQBAL on 04/18/21 1053 Levocetirizine Dihydrochloride 5 Mg Tablet, 5 MG PO DAILY, (Reported) Lisinopril 20 Mg Tablet, 20 MG PO DAILY, (Reported) Metformin HCl 500 Mg Tablet, 500 MG PO BID Prescribed by: NIDA IQBAL on 04/18/21 1053 Metoprolol Tartrate 100 Mg Tablet, 100 MG PO HS, (Reported) Nitrofurantoin Macrocrystal 50 Mg Capsule, 50 MG PO HS, (Reported) Ondansetron 4 Mg Tab.rapdis, 4 MG PO Q8H PRN for nausea Prescribed by: BELÉN BYRD on 05/30/21 1506 Oxybutynin Chloride 5 Mg Tablet, 5 MG PO HS, (Reported) Progesterone,Micronized 100 Mg Capsule, 100 MG PO HS, (Reported) Tamsulosin HCl 0.4 Mg Cap, 0.4 MG PO DAILY Prescribed by: BELÉN BYRD on 05/30/21 1506 Patient Home Medication List Home Medication List Reviewed: Yes Review of Systems Review of Systems Constitutional: see HPI EENTM: No Symptoms Reported Respiratory: No Symptoms Reported Cardiovascular: No Symptoms Reported Gastrointestinal: Abdominal Pain Genitourinary: Frequency Musculoskeletal: no symptoms reported Skin: no symptoms reported All Other Systems Reviewed Negative Unless Noted: Yes Past Zuqeyvg-Dtwcbu-Vlgjyw Hx Immunizations Up To Date First/Initial COVID19 Vaccinat: Did not get Second COVID19 Vaccination Randy: Did not get Seasonal Allergies Seasonal Allergies: Yes Past Medical History Asthma Currently Using CPAP: Yes Currently Using BIPAP: No Reproductive Disorders: No Female Reproductive Disorders: Denies Sexually Transmitted Disease: No HIV/AIDS: No Gastroesophageal Reflux, Liver Disease/Jaundice, Chronic Diarrhea Degenerate Disk Disease, Arthritis, Fibromyalgia, Chronic Back Pain Diabetes, Non-Insulin dep Loss of Vision: Bilateral Hearing Impairment: Denies Anxiety, Depression Adverse Reaction/Blood Tranf: No Physical Exam Vital Signs Vital Signs - First Documented 06/02/21 12:43 Pulse 100 B/P (MAP) 151/100 (117) Capillary Refill : Height/Weight/BMI Height: 5'5.00" Weight: 180lbs. 0.0oz. [id number]; 29.00 BMI Method: General Appearance: WD/WN, no apparent distress HEENT: PERRL/EOMI Respiratory: lungs clear, normal breath sounds, no respiratory distress, no accessory muscle use Cardiovascular: regular rate, rhythm Gastrointestinal: soft, tenderness (mild tenderness in the right flank) Extremities: normal range of motion, non-tender, normal inspection Neurologic/Psychiatric: alert, normal mood/affect, oriented x 3 Skin: normal color, warm/dry Progress/Results/Core Measures Results/Orders Lab Results Laboratory Tests Test 06/02/21 13:20 06/02/21 13:29 Range/Units Urine Color YELLOW Urine Clarity CLEAR Urine pH 6.0 5-9 Urine Specific [place] 1.025 H 1.016-1.022 Urine Protein TRACE H NEGATIVE Urine Glucose (UA) NEGATIVE NEGATIVE Urine Ketones 2+ H NEGATIVE Urine Nitrite NEGATIVE NEGATIVE Urine Bilirubin NEGATIVE NEGATIVE Urine Urobilinogen 0.2 < = 1.0 MG/DL Urine Leukocyte Esterase 1+ H NEGATIVE Urine RBC (Auto) 3+ H NEGATIVE Urine RBC 10-25 H /HPF Urine WBC 10-25 H /HPF Urine Crystals NONE /LPF Urine Bacteria TRACE /HPF Urine Casts NONE /LPF Urine Mucus NEGATIVE /LPF Urine Culture Indicated YES Sodium Level 139 135-145 MMOL/L Potassium Level 3.8 3.6-5.0 MMOL/L Chloride Level 105 98-107 MMOL/L Carbon Dioxide Level 19 L 21-32 MMOL/L Anion Gap 15 H 5-14 MMOL/L Blood Urea Nitrogen 12 7-18 MG/DL Creatinine 0.74 0.60-1.30 MG/DL Estimat Glomerular Filtration Rate 83 BUN/Creatinine Ratio 16 Glucose Level 224 H 70-105 MG/DL Calcium Level 9.7 8.5-10.1 MG/DL My Orders Orders - BELÉN BYRD MD Ed Iv/Invasive Line Start (06/02/21 12:59) Basic Metabolic Panel (06/02/21 12:59) Abdomen/Kub 1view (06/02/21 12:59) Morphine Injection (Morphine Injection (06/02/21 13:32) Ondansetron Injection (Zofran Injectio (06/02/21 13:45) Medications Given in ED Current Medications Medications Dose Ordered Sig/Víctor Route Start Time Stop Time Status Last Admin Dose Admin Ondansetron HCl 4 mg ONCE ONCE IVP 06/02/21 13:45 06/02/21 13:46 DC 06/02/21 14:06 4 MG Vital Signs/I&O 06/02/21 12:43 Pulse 100 B/P (MAP) 151/100 (117) Progress Progress Note : Time: 14:46 Progress Note Case discussed with Dr. Jovel. Will fax her chart to him for tomorrow. We will put her on some antibiotics today secondary to white cells and leukocyte esterase in her urine. Redosing her Toradol today. Reviewed her KUB and the stone is not visible on KUB. He states he will see her at 3 PM in his office tomorrow. 1459 pain free and relaxed. comfortable with discharge Diagnostic Imaging Diagonstic Imaging: Xray Comments [facility], [place] NAME: PAULINO CAMARENA [facility] REC#: [id number] PT STATUS: REG ER : 1970 PHYSICIAN: BELÉN BYRD MD ADMIT DATE: 06/02/21/ER Draft Date of Exam:06/02/21 ABDOMEN/KUB 1VIEW Indication: Severe right flank pain. TIME OF EXAM: 1:47 PM Correlation is made with prior abdominal radiograph from 05/30/2021. Calcific density overlying the left renal shadows again noted. Previously noted distal right ureteric calculus is not well visualized on today's study. No definite calculi along the course of ureters are identified. There are pelvic calcifications consistent with phleboliths. Bowel gas pattern is nonobstructive. There are surgical clips in gallbladder fossa. IMPRESSION: No definite radiopaque ureteral calculi are identified on today's exam. Left renal calculus is again noted. Dictated on workstation # [id number] Dict: 06/02/21 1346 Trans: 06/02/21 1349 [facility] [id number] Interpreted by: MELCHOR FINN MD Electronically signed by: Departure Impression Primary Impression: Right ureteral calculus Additional Impression: Urinary tract infection Qualified Codes: N39.0 - Urinary tract infection, site not specified; R31.9 - Hematuria, unspecified Disposition: 01 HOME, SELF-CARE Condition: Stable Departure-Patient Inst. Decision time for Depature: 14:47 Referrals: CIARA MONTENEGRO DO (PCP/Family) Primary Care Physician HERBERT YANG MD Patient Instructions: Kidney Stones (DC) Add. Discharge Instructions: Push lots of fluids to stay well-hydrated. Take the antibiotics as prescribed. Continue pain medications and nausea medications. Follow-up with Dr. Yang tomorrow at 3 PM in his office. Return to the emergency room for any new, concerning or emergent complaints. Scripts Oxycodone HCl/Acetaminophen (Percocet 5-325 mg Tablet) 1 Each Tablet 1 TAB PO Q6H for PAIN-MODERATE MDD 6 TABS, #15 TAB Prov: BELÉN BYRD MD 06/02/21 Fluconazole (Diflucan) 150 Mg Tablet 150 MG PO ONCE, #2 TAB repeat dose at the end of antibiotics Prov: BELÉN BYRD MD 06/02/21 Cephalexin (Cephalexin) 500 Mg Tablet 500 MG PO TID for 7 Days, #21 TAB Prov: BELÉN BYRD MD 06/02/21 BELÉN BYRD MD Jun 02, 2021 13:07
[2021-06-02] MEDS ORDERED: morphine INJ 10 MG/ML 1ML (SYR OR VIAL) IVP STA (13:32)
[2021-06-02 13:38] LABS: BILIRUBIN,URINE NEGATIVE (NEGATIVE); CLARITY,URINE CLEAR; COLOR,URINE YELLOW; GLUCOSE, URINE (UA) NEGATIVE (NEGATIVE); KETONES,URINE 2+ (NEGATIVE); LEUKOCYTE ESTERASE ,URINE 1+ (NEGATIVE); NITRITE,URINE NEGATIVE (NEGATIVE); PROTEIN,URINE TRACE (NEGATIVE)
[2021-06-02] MEDS ORDERED: ONDANSETRON 4 MG/2 ML (SDV) Z0FRAN IVP ONE (13:45)
--- NOTE | 2021-06-02 13:49 | Diagnostic Imaging Report ---
Indication: Severe right flank pain. TIME OF EXAM: 1:47 PM Correlation is made with prior abdominal radiograph from 05/30/2021. Calcific density overlying the left renal shadows again noted. Previously noted distal right ureteric calculus is not well visualized on today's study. No definite calculi along the course of ureters are identified. There are pelvic calcifications consistent with phleboliths. Bowel gas pattern is nonobstructive. There are surgical clips in gallbladder fossa. IMPRESSION: No definite radiopaque ureteral calculi are identified on today's exam. Left renal calculus is again noted. Dictated by: Dictated on workstation # [id number]
[2021-06-02 13:53] LABS: POTASSIUM 3.8 MMOL/L (3.6-5.0)
[2021-06-02 13:54] LABS: CALCIUM 9.7 MG/DL (8.5-10.1)
[2021-06-02 13:57] LABS: BACTERIA,URINE TRACE /HPF
[2021-06-02 13:58] LABS: CREATININE SERUM 0.74 MG/DL (0.60-1.30)
[2021-06-02] MEDS ORDERED: CEPH500T PO (14:48)
[2021-06-02] MEDS ORDERED: ACHD5005 PO (15:00)
[2021-06-02] MEDS ORDERED: FLUC150T PO (15:00)
[2021-06-02 15:25] VITALS: BP 137/102
[2021-06-02] MEDS ORDERED: OXYC1TAB87 PO (15:25)
== END 2021-06-02 15:25 | disposition home or self-care (01) ==
LOC: EDUNIT# 12:39 → ER 12:41
DX: N20.1 Calculus of ureter (principal); N39.0 Urinary tract infection, site not specified; J45.909 Unspecified asthma, uncomplicated; E11.9 Type 2 diabetes mellitus without complications; Z79.84 Long term (current) use of oral hypoglycemic drugs; Z79.82 Long term (current) use of aspirin; Z79.899 Other long term (current) drug therapy
CPT/HCPCS: 36415; 74018; 80048; 81000; 87088

== ENCOUNTER 2021-06-08 05:57 | Outpatient (CLI) | payer MEDICARE, BC, MEDICAID ==
[~2021-06-08] VITALS: Ht 165.1 cm; Wt 81.8 kg
[~2021-06-08 05:57] MED LIST changes: +CEPH500T PO; +FLUC150T PO; +OXYC1TAB87 PO
[2021-06-08] MEDS ORDERED: INSU100I14 SQ (15:24)
[2021-06-08] MEDS ORDERED: INSU100I29 SQ (15:24)
[2021-06-09] MEDS ORDERED: KETO10TA PO (09:52)
[2021-06-09] MEDS ORDERED: NITR-65 PO (09:52)
[2021-06-09] MEDS ORDERED: TMSL.4C PO (09:52)
== END 2021-06-08 15:29 | disposition home or self-care (01) ==
LOC: PREOP 05:57
PROVIDERS: ATTEND Urology
DX: Z01.818 Encounter for other preprocedural examination (principal)

== ENCOUNTER 2021-06-09 06:52 | Day surgery (SDC) | payer BC, MEDICARE, MEDICAID ==
[~2021-06-09] VITALS: Ht 165.1 cm; Wt 81.8 kg
[2021-06-09] VITALS (9 sets, daily range): BP systolic 118–152; BP diastolic 83–112
[~2021-06-09 06:52] MED LIST changes: +INSU100I14 SQ
--- NOTE | 2021-06-09 07:09 | Progress Note-Pre Operative ---
Pre-Operative Progress Note H&P Reviewed The H&P was reviewed, patient examined and no changes noted. Date Seen by Provider: Jun 09, 2021 Time Seen by Provider: 07:08 Date H&P Reviewed: Jun 09, 2021 Time H&P Reviewed: 07:08 Pre-Operative Diagnosis: RT DISTAL URETERAL AND LT RENAL STONES HERBERT YANG MD Jun 09, 2021 07:09
[2021-06-09] MEDS ORDERED: cefTRIAXone 1,000 MG in WATER (STERILE) FOR INJECTION 10 ML IV ONE (07:15)
[2021-06-09] MEDS: LACTATED RINGERS 1,000 ML IV PRN ×2 (07:21→09:12)
[2021-06-09] MEDS ORDERED: SCOPOLAMINE 1.5 MG (TRANSDERM-SCOP) PATCH TOP ONE (07:45)
[2021-06-09] MEDS ORDERED: FAMOTIDINE 20MG/2ML IV (PEPCID) IV ONE (07:45)
[2021-06-09] MEDS ORDERED: ONDANSETRON 4 MG/2 ML (SDV) Z0FRAN IV ONE (07:45)
[2021-06-09] MEDS ORDERED: KETOROLAC 30 MG/ML VIAL ONE (08:12)
[2021-06-09] MEDS ORDERED: ONDANSETRON 4 MG/2 ML (SDV) Z0FRAN ONE (08:12)
[2021-06-09] MEDS ORDERED: FUROSEMIDE 40 MG/4 ML INJ (LASIX) ONE (08:12)
[2021-06-09] MEDS ORDERED: proPOfol 200 MG/20 ML (DIPRIVAN) VIAL IV ONE (08:13)
[2021-06-09] MEDS ORDERED: LIDOCAINE 2% 20 ML (XYLOCAINE) VIAL ONE (08:13)
[2021-06-09] MEDS ORDERED: SEVOFLURANE (ULTANE) 15 ML INHAL SOLN ONE (08:13)
[2021-06-09] MEDS ORDERED: LIDOCAINE PF 2% 5 ML (XYLOCAINE) VIAL ONE (08:13)
--- NOTE | 2021-06-09 08:35 | Discharge Inst-Urology ---
Discharge Inst-Urology Reconcile Patient Problems Problems Reviewed?: Yes Final Diagnosis RT DISTAL URETERAL STONE (PASSED) AND LT RENAL STONE Patient Instructions/Follow Up Plan/Assessment/Instructions Please make appointment to been seen in office Thursday 06/21. KUB prior to it Hold ASA Hold home Macrodantin 50 daily, resume post done with Rx for Macrobid KUB on way home Post ESWL instructions Increase oral fluids for 48 hours and then as needed. Diet and Activity as tolerated. If questions or concerns contact your physician Or seek help at emergency department. HERBERT YANG MD Jun 09, 2021 08:35
--- NOTE | 2021-06-09 08:37 | Progress Note-Post Operative ---
Post-Operative Progess Note Surgeon (s)/Associate Property Manager (s) Surgeon HERBERT YANG MD Associate Property Manager: NONE Pre-Operative Diagnosis RT DISTAL URETERAL AND LT RENAL STONES Post-Operative Diagnosis SAME Procedure & Operative Findings Date of Procedure 06/09/21 Procedure Performed/Findings RT URETEROSCOPY AND LT ESWL Anesthesia Type GENERAL Estimated Blood Loss Estimated blood loss (mL): NONE Specimens/Packing Specimens Removed NONE Packing: NONE HERBERT YANG MD Jun 09, 2021 08:37
[2021-06-09] MEDS ORDERED: LABETALOL HCL 20 MG/4 ML VIAL ONE (09:05)
[2021-06-09] MEDS ORDERED: LACTATED RINGERS 1,000 ML IV ONE (09:11)
[2021-06-09] MEDS ORDERED: TMSL.4C PO (09:52)
[2021-06-09] MEDS ORDERED: KETO10TA PO (09:52)
[2021-06-09] MEDS ORDERED: NITR-65 PO (09:52)
--- NOTE | 2021-06-09 10:21 | Diagnostic Imaging Report ---
INDICATION: Status post lithotripsy. TIME OF EXAM: 10:10 a.m. Correlation is made with prior radiograph earlier the same day. There appears to be fragmentation of a calculus overlying the left renal shadow. No definite calculi along the expected course of the ureters is seen. The distal right ureteric calculus noted on CT study from 05/30/2021 is not well-visualized by KUB. Multiple pelvic calculus locations likely represent phleboliths. IMPRESSION: There appears to be some fragmentation of a calculus overlying the left kidney. No definite ureteral calculi are detected. Dictated by: Dictated on workstation # [id number]
--- NOTE | 2021-06-09 11:38 | Anesthesia-General Post-Op ---
General Patient Condition Mental Status/LOC: Same as Preop Cardiovascular: Satisfactory Nausea/Vomiting: Absent Respiratory: Satisfactory Pain: Controlled Complications: Absent Post Op Complications Complications None Follow Up Care/Instructions Patient Instructions None needed. Anesthesia/Patient Condition Patient Condition Patient is doing well, no complaints, stable vital signs, no apparent adverse anesthesia problems. No complications reported per nursing. MAURICE FIGUEROA CRNA Jun 09, 2021 11:38
--- NOTE | 2021-06-09 13:04 | OPERATIVE REPORT ---
DATE OF SERVICE: 06/09/2021 PREOPERATIVE DIAGNOSES: Right distal ureteral stone, question passed and left renal stone. POSTOPERATIVE DIAGNOSES: Right distal ureteral stone, question passed and left renal stone. OPERATION PERFORMED: Cystoscopy, right ureteroscopy and left ESWL. SURGEON: Glenn Yang MD ANESTHESIA: General. COMPLICATIONS: None. DESCRIPTION OF PROCEDURE: Under satisfactory general anesthesia, the patient in lithotomy position, genitalia were prepped and draped in the usual sterile fashion. Cystoscope was introduced in the bladder that was normal except for a cystocele and rectocele. Using the foroblique lens, I dilated the right ureteral orifice intramural portion to accommodate a 6.9 [place]utanese semi-rigid ureteroscope, went up all the way to the right renal pelvis in an antegrade fashion again. There were no stones whatsoever, so I removed the ureteroscope, reinserted the cystoscope, emptied the bladder. The patient was moved to the ESWL table. The left renal stone was localized. Shocks were delivered at kV of 6, a total of 2500 shocks completely fragmented the stone that was not visualized anymore. The patient received 40 mg of Lasix and 30 mg of Toradol IV at the end of the procedure. She tolerated the procedure and anesthesia well and was sent to recovery room in stable condition. CC: Dr. French- requested, unable to deliver. Job ID: [id number] DocumentID: [id number] Dictated Date: 06/09/2021 08:49:27 Ultimate Hoops Trainer Date: 06/09/2021 13:03:40 Dictated By: GLENN YANG MD
--- NOTE | 2021-06-10 15:39 | Diagnostic Imaging Report ---
EXAMINATION: Abdominal radiographs, single view. DATE: June 09, 2021. CLINICAL INDICATION: 51-year-old female, flank pain. COMPARISON: June 02, 2021 radiograph of the abdomen. COMMENTS: There are no abnormally distended gas-filled segments of bowel. There are pelvic calcifications which in large part likely reflect phleboliths. There is note of a right distal ureteral stone on the prior CT exam which is not confidently identified radiographically. There is no identified abnormal radiodensity overlying the expected positions of the kidneys. IMPRESSION: 1. Previously noted right distal ureteral stone on prior CT of May 30, 2021 is not confidently identified radiographically. 2. Unremarkable bowel gas pattern. Dictated by: Dictated on workstation # [id number]
== END 2021-06-09 11:15 ==
LOC: SDC 06:52
PROVIDERS: ATTEND Urology
DX: N20.2 Calculus of kidney with calculus of ureter (principal); N81.10 Cystocele, unspecified; N81.6 Rectocele; I10 Essential (primary) hypertension; J45.909 Unspecified asthma, uncomplicated; G47.33 Obstructive sleep apnea (adult) (pediatric); G43.909 Migraine, unspecified, not intractable, without status migrainosus; K21.9 Gastro-esophageal reflux disease without esophagitis; E11.9 Type 2 diabetes mellitus without complications; F32.9 Major depressive disorder, single episode, unspecified; F41.9 Anxiety disorder, unspecified; Z79.4 Long term (current) use of insulin; Z99.89 Dependence on other enabling machines and devices; Z79.899 Other long term (current) drug therapy; Z83.3 Family history of diabetes mellitus; Z80.9 Family history of malignant neoplasm, unspecified
CPT/HCPCS: 74018; 76000; 84703; 87081

== ENCOUNTER → 2021-09-27 | Outpatient (CLI) | payer BC, MEDICARE, MEDICAID ==
[~2021-09-27] MED LIST changes: +KETO10TA PO; +NITR-65 PO; +PHEN-640 PO; +SEMA0.25 SQ
--- NOTE | 2021-09-27 13:46 | Diagnostic Imaging Report ---
PROCEDURE: CT abdomen and pelvis without contrast. TECHNIQUE: Multiple contiguous axial images were obtained through the abdomen and pelvis without the use of intravenous contrast. Auto Exposure Controls were utilized during the CT exam to meet ALARA standards for radiation dose reduction. INDICATION: Right flank pain. Comparison is made with prior CT from 05/30/2021. The lung bases are clear. Diffuse low density throughout the liver is noted consistent with hepatic steatosis. No discrete liver mass is detected. Gallbladder surgically absent. There is no biliary ductal dilatation. Pancreas and spleen are unremarkable. No adrenal mass is detected. There is an ovoid calculus in the distal right ureter just proximal to UVJ measuring 5 mm in size. This does produce fairly significant hydroureteronephrosis. No renal calculi are identified. Left-sided urinary tracts are unremarkable. Aorta is nonaneurysmal. Bowel loops are normal caliber. There is no obstruction. There is diverticulosis of the sigmoid but no evidence of acute diverticulitis. The appendix is unremarkable. No free fluid or fluid collection is seen. The uterus and bladder are unremarkable. IMPRESSION: 1. 5 mm distal right ureteric calculus producing moderate hydroureteronephrosis. 2. Hepatic steatosis. 3. Uncomplicated diverticulosis. Dictated by: Dictated on workstation # [id number]
--- NOTE | 2021-09-27 13:54 | Diagnostic Imaging Report ---
INDICATION: Right flank pain. TIME OF EXAM: 1:27 PM Correlation is made with CT study earlier same day. The 5 mm stone noted on CT is not well identified by KUB. There are calcific densities in the pelvis consistent with phlebolith. Bowel gas patterns unremarkable. No definite renal calculi are seen. IMPRESSION: Distal right ureteric calculus noted on CT is poorly visualized on x-ray. Dictated by: Dictated on workstation # [id number]
== END ==
LOC: RAD 12:25
PROVIDERS: ATTEND Nurse Practitioner Family
DX: N13.2 Hydronephrosis with renal and ureteral calculous obstruction (principal); K76.0 Fatty (change of) liver, not elsewhere classified; K57.30 Diverticulosis of large intestine without perforation or abscess without bleeding
CPT/HCPCS: 74018; 74176

== ENCOUNTER → 2021-09-27 | Outpatient (CLI) | payer BC, MEDICARE, MEDICAID | END | disposition home or self-care (01) | LOC: PREOP 14:53 | PROVIDERS: ATTEND Urology | DX: Z01.818 Encounter for other preprocedural examination (principal) ==

== ENCOUNTER 2021-09-28 07:16 | Day surgery (SDC) | payer BC, MEDICARE, MEDICAID ==
[~2021-09-28] VITALS: Ht 165.1 cm; Wt 81.8 kg
[2021-09-28] VITALS (11 sets, daily range): BP systolic 114–149; BP diastolic 84–108
[~2021-09-28 07:16] MED LIST changes: -PHEN-640 PO; -SEMA0.25 SQ
[2021-09-28] MEDS ORDERED: cefTRIAXone 1 GM PRE-MIX 50 ML IV ONE (08:00)
--- NOTE | 2021-09-28 08:04 | Diagnostic Imaging Report ---
INDICATION: Lithotripsy, pre-stone surgery COMPARISON: 09/27/2021 TECHNIQUE: 2 radiographs of the abdomen dated 09/28/2021 FINDINGS: Surgical clips are present within the right upper quadrant of the abdomen. Two rounded calcifications, including a dense 0.8 cm calcification is noted within the right lateral pelvis, felt to relate to phleboliths based upon the recent CT examination. Multiple phleboliths also noted within the left pelvis. Previously noted right ureterovesicular junction calculus is not definitively seen. No suspicious calcifications overlying the renal shadows. Nonobstructive bowel gas pattern. Scattered osseous degenerative changes without acute osseous abnormality. IMPRESSION: Multiple phleboliths are present within the lower pelvis. Previously noted distal right ureterolith is not definitely identified, though this is not well seen on prior radiographs either. Dictated by: Dictated on workstation # [id number]
[2021-09-28] MEDS ORDERED: fentaNYL INJ 100 MCG/2 ML AMP IV ONE (08:15)
[2021-09-28] MEDS ORDERED: ONDANSETRON 4 MG/2 ML (SDV) Z0FRAN IV ONE (08:15)
[2021-09-28] MEDS ORDERED: FAMOTIDINE 20MG/2ML IV (PEPCID) IV ONE (08:15)
[2021-09-28] MEDS ORDERED: SCOPOLAMINE 1.5 MG (TRANSDERM-SCOP) PATCH TOP ONE (08:15)
--- NOTE | 2021-09-28 08:30 | Progress Note-Pre Operative ---
Pre-Operative Progress Note H&P Reviewed The H&P was reviewed, patient examined and no changes noted. Date Seen by Provider: Sep 28, 2021 Time Seen by Provider: 08:30 Date H&P Reviewed: Sep 28, 2021 Time H&P Reviewed: 08:30 Pre-Operative Diagnosis: RT PROXIMAL URETERAL STONE HERBERT YANG MD Sep 28, 2021 08:30
[2021-09-28] MEDS: LACTATED RINGERS 1,000 ML IV PRN ×2 (08:33→10:20)
[2021-09-28] MEDS ORDERED: proPOfol 200 MG/20 ML (DIPRIVAN) VIAL IV ONE (09:43)
[2021-09-28] MEDS ORDERED: SEVOFLURANE (ULTANE) 15 ML INHAL SOLN ONE ×2 (09:43→10:40)
[2021-09-28] MEDS ORDERED: FUROSEMIDE 40 MG/4 ML INJ (LASIX) ONE (09:43)
[2021-09-28] MEDS ORDERED: ONDANSETRON 4 MG/2 ML (SDV) Z0FRAN ONE (09:43)
[2021-09-28] MEDS ORDERED: KETOROLAC 30 MG/ML VIAL ONE (09:43)
[2021-09-28] MEDS ORDERED: LIDOCAINE PF 2% 5 ML (XYLOCAINE) VIAL ONE (09:43)
[2021-09-28] MEDS ORDERED: fentaNYL INJ 100 MCG/2 ML AMP ONE (09:44)
[2021-09-28] MEDS ORDERED: MIDAZOLAM 2 MG/2 ML (VERSED) VIAL ONE (09:44)
[2021-09-28] MEDS ORDERED: SEMA0.25 SQ ×2 (10:00)
--- NOTE | 2021-09-28 10:35 | Progress Note-Post Operative ---
Post-Operative Progess Note Surgeon (s)/Plant Maintenance Supervisor (s) Surgeon HERBERT YANG MD Plant Maintenance Supervisor: NONE Pre-Operative Diagnosis RT PROXIMAL URETERAL STONE Post-Operative Diagnosis SAME Procedure & Operative Findings Date of Procedure 09/28/21 Procedure Performed/Findings RT URETEROSCOPY WITH STONE LITHOTRIPSY Anesthesia Type GENERAL Estimated Blood Loss Estimated blood loss (mL): NONE Specimens/Packing Specimens Removed NONE Packing: NONE HERBERT YANG MD Sep 28, 2021 10:35
--- NOTE | 2021-09-28 10:37 | Discharge Inst-Urology ---
Discharge Inst-Urology Reconcile Patient Problems Problems Reviewed?: Yes Final Diagnosis RT DISTAL URETERAL STONE Patient Instructions/Follow Up Plan/Assessment/Instructions Please make appointment to been seen in office in 2 weeks. Increase oral fluids for 48 hours and then as needed. Diet and Activity as tolerated. If questions or concerns contact your physician Or seek help at emergency department. HERBERT YANG MD Sep 28, 2021 10:37
[2021-09-28] MEDS ORDERED: KETO10TA PO ×2 (12:04)
[2021-09-28] MEDS ORDERED: TMSL.4C PO ×2 (12:04)
[2021-09-28] MEDS ORDERED: PHEN-640 PO ×2 (12:04)
[2021-09-28] MEDS ORDERED: NITR-65 PO ×2 (12:04)
--- NOTE | 2021-09-28 16:53 | OPERATIVE REPORT ---
DATE OF SERVICE: 09/28/2021 PREOPERATIVE DIAGNOSIS: Right distal ureteral stone. POSTOPERATIVE DIAGNOSIS: Right distal ureteral stone. OPERATIONS PERFORMED: Cystoscopy and right ureteroscopy with stone lithotripsy. SURGEON: Glenn Yang MD. ANESTHESIA: General. COMPLICATIONS: None. DESCRIPTION OF PROCEDURE: Under satisfactory general anesthesia and the patient in a lithotomy position, the genitalia were prepped and draped in the usual sterile fashion. Cystoscope was introduced and the bladder was normal except for sluggish efflux on the right side. Using the foroblique lens, I dilated the right ureteral orifice intramural portion and felt disimpacting the stone to accommodate a 6.9 [place] semi-rigid ureteroscope. The stone was visualized and was broken up with lithoclast first at a kV of 5 in order not to lose the stone proximally and then finished it up with a power of 12. The stone was completely fragmented with no significant fragments. The ureteroscope was removed. Cystoscope was introduced into the bladder. The patient tolerated the procedure and anesthesia well and was sent to recovery room in a stable condition. CC: Dr. French - requested, unable to deliver. Job ID: [id number] DocumentID: [id number] Dictated Date: 09/28/2021 10:39:45 Sealer Operator Date: 09/28/2021 16:53:25 Dictated By: GLENN YANG MD
== END 2021-09-28 12:37 | disposition home or self-care (01) ==
LOC: SDC 07:16
PROVIDERS: ATTEND Urology
DX: N20.1 Calculus of ureter (principal); I10 Essential (primary) hypertension; J45.909 Unspecified asthma, uncomplicated; G47.33 Obstructive sleep apnea (adult) (pediatric); E11.9 Type 2 diabetes mellitus without complications; K21.9 Gastro-esophageal reflux disease without esophagitis; F41.9 Anxiety disorder, unspecified; G89.29 Other chronic pain; M54.9 Dorsalgia, unspecified; M79.7 Fibromyalgia; Z79.899 Other long term (current) drug therapy; Z79.4 Long term (current) use of insulin
CPT/HCPCS: 74018; 76000; 82947; 84703; 87081

== ENCOUNTER → 2021-10-21 | Outpatient (CLI) | payer BC, MEDICARE, MEDICAID ==
[~2021-10-21] MED LIST changes: +PHEN-640 PO; +SEMA0.25 SQ
== END ==
LOC: LAB 15:35
PROVIDERS: ATTEND Urology
DX: Z87.442 Personal history of urinary calculi (principal)

== ENCOUNTER 2021-11-08 14:42 | Outpatient (CLI) | payer BC, MEDICARE, MEDICAID ==
[~2021-11-08] VITALS: Ht 165.1 cm; Wt 81.8 kg
[2021-11-08] MEDS ORDERED: INSU100V5 SQ (16:49)
[2021-11-09] MEDS ORDERED: NITR-65 PO (10:17)
[2021-11-09] MEDS ORDERED: TMSL.4C PO (10:17)
[2021-11-09] MEDS ORDERED: KETO10TA PO (10:17)
== END 2021-11-08 17:19 ==
LOC: PREOP 14:42
PROVIDERS: ATTEND Urology
DX: Z01.818 Encounter for other preprocedural examination (principal)

== ENCOUNTER 2021-11-09 06:36 | Day surgery (SDC) | payer BC, MEDICARE, MEDICAID ==
[2021-11-09] VITALS (10 sets, daily range): BP systolic 106–133; BP diastolic 82–93
[~2021-11-09] VITALS: Ht 165.1 cm; Wt 81.8 kg
[~2021-11-09 06:36] MED LIST changes: +INSU100V5 SQ
[2021-11-09] MEDS ORDERED: SCOPOLAMINE 1.5 MG (TRANSDERM-SCOP) PATCH ONE (07:07)
[2021-11-09] MEDS ORDERED: cefTRIAXone 1 GM PRE-MIX 50 ML IV ONE ×2 (07:07→07:15)
[2021-11-09] MEDS ORDERED: MIDAZOLAM 2 MG/2 ML (VERSED) VIAL ONE ×2 (07:18→07:52)
[2021-11-09] MEDS: LACTATED RINGERS 1,000 ML IV PRN ×2 (07:25→09:32)
[2021-11-09] MEDS ORDERED: SCOPOLAMINE 1.5 MG (TRANSDERM-SCOP) PATCH TD ONE (07:30)
[2021-11-09] MEDS ORDERED: MIDAZOLAM 2 MG/2 ML (VERSED) VIAL IVP ONE (07:30)
--- NOTE | 2021-11-09 07:34 | Progress Note-Pre Operative ---
Pre-Operative Progress Note H&P Reviewed The H&P was reviewed, patient examined and no changes noted. Date Seen by Provider: Nov 09, 2021 Time Seen by Provider: 07:34 Date H&P Reviewed: Nov 09, 2021 Time H&P Reviewed: 07:34 Pre-Operative Diagnosis: LT RENAL STONE HERBERT YANG MD Nov 09, 2021 07:34
--- NOTE | 2021-11-09 07:40 | Diagnostic Imaging Report ---
CLINICAL INDICATION: Patient with ESWL. EXAM: X-ray of the abdomen with multiple supine and upright views. COMPARISON: X-ray of the abdomen dated 09/28/2021. FINDINGS: There is a nonobstructed bowel gas pattern. There is no evidence of abdominal free air. Nonobstructive bowel gas pattern is noted. Surgical clips are seen overlying the right upper quadrant which could be related to cholecystectomy changes. There is no intra-abdominal free air. There are no calcifications overlying the expected regions of the kidneys. Stable calcification of the pelvis which may represent phleboliths. Otherwise, there are no new calcifications seen. There are degenerative spurs involving the lower lumbar spine. IMPRESSION: 1: Stable x-ray of the abdomen with no definite urinary tract stone seen. Multiple phleboliths in the pelvis are noted which could obscure distal ureteral stones. If necessary, CT scan of the abdomen and pelvis would better evaluate. Dictated by: Dictated on workstation # [id number]
[2021-11-09] MEDS ORDERED: fentaNYL INJ 100 MCG/2 ML AMP ONE (07:52)
--- NOTE | 2021-11-09 09:01 | Progress Note-Post Operative ---
Post-Operative Progess Note Surgeon (s)/Floor Covering Contractor (s) Surgeon HERBERT YANG MD Floor Covering Contractor: NONE Pre-Operative Diagnosis LT RENAL STONE Post-Operative Diagnosis SAME Procedure & Operative Findings Date of Procedure 11/09/21 Procedure Performed/Findings LT ESWL Anesthesia Type GENERAL Estimated Blood Loss Estimated blood loss (mL): NONE Specimens/Packing Specimens Removed NONE Packing: NONE HERBERT YANG MD Nov 09, 2021 09:01
--- NOTE | 2021-11-09 09:03 | Discharge Inst-Urology ---
Discharge Inst-Urology Reconcile Patient Problems Problems Reviewed?: Yes Final Diagnosis LT RENAL STONE Patient Instructions/Follow Up Plan/Assessment/Instructions Please make appointment to been seen in office in 3 weeks, KUB prior to it KUB on way home Post ESWL instructions Increase oral fluids for 48 hours and then as needed. Diet and Activity as tolerated. If questions or concerns contact your physician Or seek help at emergency department. HERBERT YANG MD Nov 09, 2021 09:03
[2021-11-09] MEDS ORDERED: proPOfol 200 MG/20 ML (DIPRIVAN) VIAL IV ONE (09:19)
[2021-11-09] MEDS ORDERED: FUROSEMIDE 40 MG/4 ML INJ (LASIX) ONE (09:19)
[2021-11-09] MEDS ORDERED: KETOROLAC 30 MG/ML VIAL ONE (09:19)
[2021-11-09] MEDS ORDERED: LIDOCAINE PF 2% 5 ML (XYLOCAINE) VIAL ONE (09:19)
[2021-11-09] MEDS ORDERED: SEVOFLURANE (ULTANE) 15 ML INHAL SOLN ONE (09:24)
[2021-11-09] MEDS ORDERED: ONDANSETRON 4 MG/2 ML (SDV) Z0FRAN ONE (09:25)
--- NOTE | 2021-11-09 09:41 | Anesthesia-General Post-Op ---
General Patient Condition Mental Status/LOC: Same as Preop Cardiovascular: Satisfactory Nausea/Vomiting: Absent Respiratory: Satisfactory Pain: Controlled Complications: Absent Post Op Complications Complications None Follow Up Care/Instructions Patient Instructions None needed. Anesthesia/Patient Condition Patient Condition Patient is doing well, no complaints, stable vital signs, no apparent adverse anesthesia problems. No complications reported per nursing. DUNG VALLEJO CRNA Nov 09, 2021 09:41
[2021-11-09] MEDS ORDERED: fentaNYL INJ 100 MCG/2 ML AMP IVP ONE (09:45)
[2021-11-09] MEDS ORDERED: ONDANSETRON 4 MG/2 ML (SDV) Z0FRAN IVP PRN (09:45)
[2021-11-09] MEDS ORDERED: morphine INJ 10 MG/ML 1ML (SYR OR VIAL) IVP ONE (09:45)
[2021-11-09] MEDS ORDERED: KETO10TA PO (10:17)
[2021-11-09] MEDS ORDERED: TMSL.4C PO (10:17)
[2021-11-09] MEDS ORDERED: NITR-65 PO (10:17)
--- NOTE | 2021-11-09 11:26 | Diagnostic Imaging Report ---
ABDOMEN/KUB 1 VIEW INDICATION: Status post lithotripsy. Ureteral stone. COMPARISON: 11/09/2021. TECHNIQUE: AP view of the abdomen. FINDINGS: No definitive calculi along the urinary tract. Scattered pelvic phleboliths are present. Nonobstructive bowel gas pattern. Cholecystectomy. IMPRESSION: No appreciable urinary tract calculi by radiography. Dictated by: Dictated on workstation # [id number]
--- NOTE | 2021-11-09 14:01 | OPERATIVE REPORT ---
DATE OF SERVICE: 11/09/2021 PREOPERATIVE DIAGNOSIS: Left renal stone. POSTOPERATIVE DIAGNOSIS: Left renal stone. OPERATION PERFORMED: Left ESWL. SURGEON: Glenn Yang MD. ANESTHESIA: General. COMPLICATIONS: None. DESCRIPTION OF PROCEDURE: Under satisfactory general anesthesia, the patient in supine position on the ESWL table, the left renal stone was localized. Shocks were delivered at a kV of 6, a total of 2500 shocks completely fragmented the stone that was not visualized anymore. The patient received 40 mg of Lasix and 30 mg of Toradol IV at the end of the procedure. She tolerated the procedure and anesthesia well and was sent to recovery room in a stable condition. Job ID: [id number] DocumentID: [id number] Dictated Date: 11/09/2021 09:20:31 Rolling Mill Plugger Date: 11/09/2021 14:01:12 Dictated By: GLENN YANG MD
== END 2021-11-09 11:55 | disposition home or self-care (01) ==
LOC: SDC 06:36
PROVIDERS: ATTEND Urology
DX: N20.2 Calculus of kidney with calculus of ureter (principal); I10 Essential (primary) hypertension; K21.9 Gastro-esophageal reflux disease without esophagitis; K76.0 Fatty (change of) liver, not elsewhere classified; E11.40 Type 2 diabetes mellitus with diabetic neuropathy, unspecified; J45.909 Unspecified asthma, uncomplicated; F31.9 Bipolar disorder, unspecified; F03.90 Unspecified dementia, unspecified severity, without behavioral disturbance, psychotic disturbance, mood disturbance, and anxiety; F90.9 Attention-deficit hyperactivity disorder, unspecified type; Z79.4 Long term (current) use of insulin; Z79.899 Other long term (current) drug therapy
CPT/HCPCS: 74018; 84703; 87081

== ENCOUNTER 2021-11-30 08:00 | Outpatient (RCR) | payer BC, MEDICARE, MEDICAID | END 2021-12-30 | disposition home or self-care (01) | LOC: LAB 08:00 | PROVIDERS: ATTEND Urology | DX: Z87.442 Personal history of urinary calculi (principal) | CPT/HCPCS: 82140; 82340; 82507; 82570; 83735; 83945; 83986; 84105; 84133; 84300; 84392; 84560 ==

== ENCOUNTER → 2021-11-30 | Outpatient (CLI) | payer BC, MEDICARE, MEDICAID ==
--- NOTE | 2021-11-30 13:48 | Diagnostic Imaging Report ---
INDICATION: Left renal stone status post ESWL. TIME OF EXAM: 1:31 PM Correlation is made with prior radiograph from 11/09/2021. Surgical clips in gallbladder fossa are noted. Calcifications in the pelvis are consistent with phleboliths. No definite radiopaque urinary tract calculi are seen. Bowel gas pattern is unremarkable. IMPRESSION: No definite radiopaque urinary tract calculi are detected. Dictated by: Dictated on workstation # [id number]
== END ==
LOC: RAD 13:15
PROVIDERS: ATTEND Urology
DX: N20.0 Calculus of kidney (principal); Z98.890 Other specified postprocedural states
CPT/HCPCS: 74018

== ENCOUNTER 2022-06-17 04:07 | Emergency (ER) | payer BC, MEDICARE, MEDICAID ==
[~2022-06-17] VITALS: Ht 165 cm; Wt 82.0 kg
[2022-06-17 04:21] LABS: BILIRUBIN,URINE NEGATIVE (NEGATIVE); CLARITY,URINE CLEAR; COLOR,URINE YELLOW; GLUCOSE, URINE (UA) 2+ (NEGATIVE); KETONES,URINE NEGATIVE (NEGATIVE); LEUKOCYTE ESTERASE ,URINE NEGATIVE (NEGATIVE); NITRITE,URINE NEGATIVE (NEGATIVE); PH,URINE 5.5 (5-9); PROTEIN,URINE NEGATIVE (NEGATIVE)
[2022-06-17] MEDS ORDERED: DICL75TA2 (04:22)
[2022-06-17] MEDS ORDERED: ROPI0.5T4 (04:22)
[2022-06-17] MEDS ORDERED: BUSP10TA95 (04:22)
[2022-06-17] MEDS ORDERED: ATOM40CA6 (04:22)
[2022-06-17] MEDS ORDERED: MONT-40 (04:22)
[2022-06-17] MEDS ORDERED: KETOROLAC 30 MG/ML VIAL IVP ONE (04:30)
[2022-06-17] MEDS ORDERED: ONDANSETRON 4 MG/2 ML (SDV) Z0FRAN IVP ONE (04:30)
[2022-06-17] MEDS ORDERED: LACTATED RINGERS 1,000 ML IV ONE (04:30)
[2022-06-17 04:37] LABS: BACTERIA,URINE NEGATIVE /HPF
[2022-06-17 04:38] LABS: BASOPHILS % (AUTO) 0 % (0-10); EOSINOPHILS # (AUTO) 0.2 10^3/uL (0.0-0.3); EOSINOPHILS % (AUTO) 2 % (0-10); HEMATOCRIT 40 % (35-52); HEMOGLOBIN 13.8 g/dL (11.5-16.0); LYMPHOCYTES # (AUTO) 3.1 10^3/uL (1.0-4.0); LYMPHOCYTES % (AUTO) 33 % (12-44); MEAN CORPUSCULAR HEMOGLOBIN 29 pg (25-34); MEAN CORPUSCULAR HGB CONC 34 g/dL (32-36); MEAN CORPUSCULAR VOLUME 83 fL (80-99); MEAN PLATELET VOLUME 10.4 fL (9.0-12.2); MONOCYTES # (AUTO) 0.5 10^3/uL (0.0-1.0); MONOCYTES % (AUTO) 6 % (0-12); NEUTROPHILS # (AUTO) 5.4 10^3/uL (1.8-7.8); NEUTROPHILS % (AUTO) 59 % (42-75); PLATELET COUNT 256 10^3/uL (130-400); WHITE BLOOD COUNT 9.2 10^3/uL (4.3-11.0)
--- NOTE | 2022-06-17 04:45 | ED General ---
General Chief Complaint: - Reproductive Stated Complaint: POSS KIDNEY STONE,RT SIDE Nursing Triage Note: RIGHT FLANK PAIN, INCREASED URINARY FREQUENCY, NAUSEA X2 HRS Source of Information: Patient Exam Limitations: No Limitations History of Present Illness Date Seen by Provider: Jun 17, 2022 Time Seen by Provider: 04:34 Initial Comments This 52-year-old woman presents to the emergency room with complaints of a right flank pain just below the costal margin for the past 2 hours. Intense pain that woke her up. Prior to that she was feeling normal. She also has experienced intense urinary frequency and urgency with a sensation of incomplete voiding and only very small voids with each episode. This is new since the pain started 2 hours ago. She has history of numerous ureteral stones including several that have required lithotripsy. Her urologist is Dr. Yang. Allergies and Home Medications Allergies Coded Allergies: No Known Drug Allergies (Verified , 11/08/21) Patient Home Medication List Home Medication List Reviewed: Yes Atomoxetine HCl (Atomoxetine HCl) 40 Mg Capsule, (Reported) Entered as Reported by: APRIL ALANIZ on 06/17/22421 Last Action: New Order Buspirone HCl (Buspirone HCl) 10 Mg Tablet, (Reported) Entered as Reported by: APRIL ALANIZ on 06/17/22421 Last Action: New Order Colestipol HCl (Colestipol HCl) 1 Gm Tablet, 1 GM PO BID, (Reported) Entered as Reported by: PHIL MCKEON on 04/16/211403 Last Action: Last Taken Edited Diclofenac Sodium (Diclofenac Sodium) 75 Mg Tablet., (Reported) Entered as Reported by: APRIL ALANIZ on 06/17/22421 Last Action: New Order Insulin Aspart (Novolog Flexpen) 300 Units/3 Ml Solution, 8 UNIT SQ TIDWM, (Reported) Entered as Reported by: MARY PEREZ on 06/08/21 1524 Last Action: Last Taken Edited Levocetirizine Dihydrochloride (Levocetirizine Dihydrochloride) 5 Mg Tablet, 5 MG PO DAILY, (Reported) Entered as Reported by: PHIL MCKEON on 04/16/211403 Last Action: Last Taken Edited Lisinopril (Lisinopril) 20 Mg Tablet, 20 MG PO DAILY, (Reported) Entered as Reported by: PHIL MCKEON on 04/16/211403 Last Action: Last Taken Edited Metoprolol Tartrate (Metoprolol Tartrate) 100 Mg Tablet, 100 MG PO HS, (Reported) Entered as Reported by: PHIL MCKEON on 04/16/211403 Last Action: Last Taken Edited Montelukast Sodium (Montelukast Sodium) 10 Mg Tablet, (Reported) Entered as Reported by: APRIL ALANIZ on 06/17/22421 Last Action: New Order Oxybutynin Chloride (Oxybutynin Chloride) 5 Mg Tablet, 5 MG PO HS, (Reported) Entered as Reported by: PHIL MCKEON on 04/16/211403 Last Action: Last Taken Edited Ropinirole HCl (Ropinirole HCl) 0.5 Mg Tablet, (Reported) Entered as Reported by: APRIL ALANIZ on 06/17/22421 Last Action: New Order Discontinued Medications Albuterol Sulfate (Ventolin Hfa) 1 Puff Puff, 1 PUFF INH Q4H PRN for SHORTNESS OF BREATH, (Reported) Discontinued Reason: No Longer Taking Entered as Reported by: PHIL MCKEON on 04/16/211403 Last Action: Discontinued Fluticasone Propion/Salmeterol (Fluticasone-Salmeterol 100-50) 1 Each Blst.w.dev, 1 PUFF INH BID, (Reported) Discontinued Reason: No Longer Taking Entered as Reported by: PHIL MCKEON on 04/16/211403 Last Action: Discontinued Insulin Detemir (Levemir Flextouch) 100 Unit/1 Ml Insuln.pen, 40 UNIT SQ HS, (Reported) Discontinued Reason: No Longer Taking Entered as Reported by: MARY PEREZ on 06/08/21 1524 Last Action: Discontinued Insulin Determir (Levemir) 1,000 Units/10 Ml Soln, 20 UNITS SQ DAILY, (Reported) Discontinued Reason: No Longer Taking Entered as Reported by: GUNNAR EDMOND on 11/08/21 1649 Last Action: Discontinued Ketorolac Tromethamine (Ketorolac Tromethamine) 10 Mg Tablet, 10 MG PO Q6H Discontinued Reason: No Longer Taking Prescribed by: EMANUEL MCKEON on 11/09/21 1017 Last Action: Discontinued Nitrofurantoin Monohyd/M-Cryst (Macrobid 100 mg Capsule) 100 Mg Capsule, 1 TAB PO BID WITH MEALS Discontinued Reason: No Longer Taking Prescribed by: EMANUEL MCKEON on 11/09/21 101 Last Action: Discontinued Semaglutide (Ozempic) 0.25 Mg/0.2 Ml Pen.injctr, 0.25 MG SQ WEEK, (Reported) Discontinued Reason: No Longer Taking Entered as Reported by: EVARISTO CLARK on 09/28/21 1000 Last Action: Discontinued Tamsulosin HCl (Flomax) 0.4 Mg Cap, 0.4 MG PO DAILY Discontinued Reason: No Longer Taking Prescribed by: EMANUEL MCKEON on 11/09/21 101 Last Action: Discontinued Review of Systems Review of Systems Constitutional: no symptoms reported EENTM: no symptoms reported Respiratory: no symptoms reported Cardiovascular: no symptoms reported Gastrointestinal: see HPI Genitourinary: see HPI : No Musculoskeletal: no symptoms reported Skin: no symptoms reported Psychiatric/Neurological: No Symptoms Reported Hematologic/Lymphatic: No Symptoms Reported Past Gfbuirx-Xkstpp-Riseks Hx Patient Social History Tobacco Use?: No Substance use?: No Alcohol Use?: No Pt feels they are or have been: No Immunizations Up To Date Tetanus Booster (TDap): Unknown First/Initial COVID19 Vaccinat: 07/2021 Second COVID19 Vaccination Randy: SEPTEMBER 2021 Third COVID19 Vaccination Date: 07/2021 Seasonal Allergies Seasonal Allergies: Yes Past Medical History Surgery/Hospitalization HX: LITHOTRYPSY X3, RENAL STONES, NIDDM, ASTHMA, HTN, HOLLY, GERD, LIVER DISDEASE, FIBROMYALGIA, CH. BACK PAIN, ANXIETY/DEPRESSION Surgeries: Yes (uterine ablation, uvula removed) Adenoidectomy, Gallbladder, Nose, Renal (Lithotripsy), Tonsillectomy Respiratory: Yes (REPORTS OCCASIONAL WHEEZE SINCE COVID 04/2021) Asthma, Sleep Apnea Currently Using CPAP: No Currently Using BIPAP: No Cardiac: Yes (tachycardia) Hypertension Neurological: Yes Headaches /Migraines, Neuropathy Reproductive Disorders: No Female Reproductive Disorders: Denies Sexually Transmitted Disease: No HIV/AIDS: No Genitourinary: Yes Kidney Stones Gastrointestinal: Yes (DOESNT TAKE ANYTHING, FATTY LIVER) Gastroesophageal Reflux, Liver Disease/Jaundice, Chronic Diarrhea Musculoskeletal: No Degenerate Disk Disease, Arthritis, Fibromyalgia, Chronic Back Pain Endocrine: Yes Diabetes, Insulin dep HEENT: Yes Loss of Vision: Bilateral Hearing Impairment: Denies Cancer: No Psychosocial: Yes Anxiety, Depression Integumentary: No Blood Disorders: No Adverse Reaction/Blood Tranf: No Physical Exam Vital Signs Vital Signs - First Documented 06/17/22 04:33 Temp 36.0 Pulse 115 Resp 22 B/P (MAP) 166/100 (122) Pulse Ox 98 O2 Delivery Room Air Capillary Refill : Less Than 3 Seconds Height, Weight, BMI Height: 5'5.00" Weight: 180lbs. 0.0oz. 81.974511md; 30.00 BMI Method: General Appearance: WD/WN, Moderate Distress HEENT: PERRL/EOMI, Normal ENT Inspection Neck: Normal Inspection Respiratory: Lungs Clear, Normal Breath Sounds, No Accessory Muscle Use Cardiovascular: Regular Rate, Rhythm, No Edema, No Murmur Gastrointestinal: Normal Bowel Sounds, Soft, Tenderness (right flank) Extremity: Normal Inspection, No Pedal Edema Neurologic/Psychiatric: Alert, Oriented x3, No Motor/Sensory Deficits, Normal Mood/Affect Skin: Normal Color, Warm/Dry Progress/Results/Core Measures Suspected Sepsis SIRS Temperature: Pulse: 115 Respiratory Rate: 22 Laboratory Tests 06/17/22 04:26: White Blood Count 9.2 Blood Pressure 166 /100 Mean: 122 Laboratory Tests 06/17/22 04:26: Creatinine 0.70, Platelet Count 256, Total Bilirubin 0.4 Results/Orders Lab Results Laboratory Tests Test 06/17/22 04:10 06/17/22 04:26 Range/Units Urine Color YELLOW Urine Clarity CLEAR Urine pH 5.5 5-9 Urine Specific [place] 1.025 H 1.016-1.022 Urine Protein NEGATIVE NEGATIVE Urine Glucose (UA) 2+ H NEGATIVE Urine Ketones NEGATIVE NEGATIVE Urine Nitrite NEGATIVE NEGATIVE Urine Bilirubin NEGATIVE NEGATIVE Urine Urobilinogen 0.2 < = 1.0 MG/DL Urine Leukocyte Esterase NEGATIVE NEGATIVE Urine RBC (Auto) 2+ H NEGATIVE Urine RBC 2-5 H /HPF Urine WBC NONE /HPF Urine Squamous Epithelial Cells 5-10 /HPF Urine Crystals NONE /LPF Urine Bacteria NEGATIVE /HPF Urine Casts NONE /LPF Urine Mucus NEGATIVE /LPF Urine Culture Indicated NO White Blood Count 9.2 4.3-11.0 10^3/uL Red Blood Count 4.82 3.80-5.11 10^6/uL Hemoglobin 13.8 11.5-16.0 g/dL Hematocrit 40 35-52 % Mean Corpuscular Volume 83 80-99 fL Mean Corpuscular Hemoglobin 29 25-34 pg Mean Corpuscular Hemoglobin Concent 34 32-36 g/dL Red Cell Distribution Width 12.9 10.0-14.5 % Platelet Count 256 130-400 10^3/uL Mean Platelet Volume 10.4 9.0-12.2 fL Immature Granulocyte % (Auto) 0 % Neutrophils (%) (Auto) 59 42-75 % Lymphocytes (%) (Auto) 33 12-44 % Monocytes (%) (Auto) 6 0-12 % Eosinophils (%) (Auto) 2 0-10 % Basophils (%) (Auto) 0 0-10 % Neutrophils # (Auto) 5.4 1.8-7.8 10^3/uL Lymphocytes # (Auto) 3.1 1.0-4.0 10^3/uL Monocytes # (Auto) 0.5 0.0-1.0 10^3/uL Eosinophils # (Auto) 0.2 0.0-0.3 10^3/uL Basophils # (Auto) 0.0 0.0-0.1 10^3/uL Immature Granulocyte # (Auto) 0.0 0.0-0.1 10^3/uL Sodium Level 136 135-145 MMOL/L Potassium Level 3.7 3.6-5.0 MMOL/L Chloride Level 100 98-107 MMOL/L Carbon Dioxide Level 17 L 21-32 MMOL/L Anion Gap 19 H 5-14 MMOL/L Blood Urea Nitrogen 10 7-18 MG/DL Creatinine 0.70 0.60-1.30 MG/DL Estimat Glomerular Filtration Rate 105 BUN/Creatinine Ratio 14 Glucose Level 299 H 70-105 MG/DL Calcium Level 8.6 8.5-10.1 MG/DL Corrected Calcium 8.6 8.5-10.1 MG/DL Total Bilirubin 0.4 0.1-1.0 MG/DL Aspartate Amino Transf (AST/SGOT) 24 5-34 U/L Alanine Aminotransferase (ALT/SGPT) 29 0-55 U/L Alkaline Phosphatase 115 40-136 U/L Total Protein 7.1 6.4-8.2 GM/DL Albumin 4.0 3.2-4.5 GM/DL My Orders Orders - BRUEGGEMANN,ANASTASIIA T MD Ua Culture If Indicated (06/17/22 04:16) Ed Iv/Invasive Line Start (06/17/22 04:20) Lactated Ringers (Lr 1000 Ml Iv Solution (06/17/22 04:30) Ketorolac Injection (Toradol Injection) (06/17/22 04:30) Ondansetron Injection (Zofran Injectio (06/17/22 04:30) Cbc With Automated Diff (06/17/22 04:20) Comprehensive Metabolic Panel (06/17/22 04:20) Ct Abd/Pelvis Wo(Kidney Stone) (06/17/22 05:24) Medications Given in ED Current Medications Medications Dose Ordered Sig/Víctor Route Start Time Stop Time Status Last Admin Dose Admin Ketorolac Tromethamine 30 mg ONCE ONCE IVP 06/17/22 04:30 06/17/22 04:31 DC 06/17/22 04:28 30 MG Lactated Ringer's 1,000 ml @ 0 mls/hr Q0M ONCE IV 06/17/22 04:30 06/17/22 04:31 DC 06/17/22 04:28 0 MLS/HR Ondansetron HCl 8 mg ONCE ONCE IVP 06/17/22 04:30 06/17/22 04:31 DC 06/17/22 04:28 8 MG Vital Signs/I&O 06/17/22 04:33 Temp 36.0 Pulse 115 Resp 22 B/P (MAP) 166/100 (122) Pulse Ox 98 O2 Delivery Room Air Capillary Refill : Less Than 3 Seconds Blood Pressure Mean: 122 Progress Note #1: Time: 04:45 Progress Note Patient was interviewed and examined shortly after arrival. Toradol is being given for pain. Zofran administered for nausea. IV fluids infusing. Labs pending. Progress Note #2: Time: 06:[address] demonstrated a dilated ureter with inflammatory changes on the right without any evidence of ureteral stone. This would suggest she passed the stone before imaging was obtained. Symptoms have resolved with treatment. See discharge instructions for further discussion. Diagnostic Imaging Diagonstic Imaging: CT Plain Films/CT/US/NM/MRI: abdomen, pelvis Comments CT abdomen pelvis viewed by me and report reviewed. See report below: NAME: PAULINO CAMARENA MED REC#: [id number] PT STATUS: REG ER : 1970 PHYSICIAN: ANASTASIIA PEREZ MD ADMIT DATE: 06/17/22/ER Draft Date of Exam:06/17/22 CT ABD/PELVIS WO(KIDNEY STONE) PROCEDURE: CT urinary tract, rule out kidney stone. TECHNIQUE: Multiple contiguous axial images were obtained through the abdomen and pelvis without the use of intravenous contrast. Auto Exposure Controls were utilized during the CT exam to meet ALARA standards for radiation dose reduction. INDICATION: Flank pain COMPARISON: 09/27/2021 FINDINGS: Unenhanced images of the liver and spleen reveal no focal abnormality. Gallbladder surgically absent. There is no biliary ductal dilatation. No pancreatic, adrenal gland or left renal abnormality is identified. Right kidney demonstrates mild surrounding edema and/or inflammation and there is mild right hydronephrosis and hydroureter. No definite ureteric stone is identified although there are multiple calcified phleboliths seen in the pelvis bilaterally which limits evaluation. There is no evidence of calcified bladder stone. No organized fluid collection or focal inflammation is seen. There is no evidence of appendiceal abnormality. IMPRESSION: Right perinephric edema and/or inflammation with mild right hydroureteronephrosis. No definite radiopaque stone is seen although recently passed calculus could contribute. Correlation with urinalysis would be of value. Otherwise, no acute abnormality is seen. Dictated on workstation # [id number] Dict: 06/17/2215 Trans: 06/17/22 0623 [id number] Interpreted by: BRINA ERICKSON MD Departure Impression Primary Impression: Hydronephrosis, right Additional Impressions: Right flank pain Nausea Disposition: 01 HOME, SELF-CARE Condition: Improved Departure-Patient Inst. Referrals: CIARA MONTENEGRO DO (PCP/Family) Primary Care Physician Patient Instructions: Flank Pain ED, Hydronephrosis, Adult (DC) Add. Discharge Instructions: Your CT findings suggest that you had a kidney stone that passed. Drink plenty of clear liquids to stay well-hydrated and flush out the urinary tract. You may take ibuprofen up to 600 mg every 6 hours and/or Tylenol (acetaminophen) up to 1000 mg every 6 hours as needed for treatment of any residual pain. If symptoms do not completely resolve within the next day or 2, please follow-up with Dr. Jovel and/or your primary care provider. Return to the ER if you have worsening symptoms despite following these instructions. All discharge instructions reviewed with patient and/or family. Voiced understanding. Copy Copies To 1: HERBERT YANG MD Copies To 2: CIARA MONTENEGRO JOSHUA T MD Jun 17, 2022 04:45
[2022-06-17 04:47] LABS: POTASSIUM 3.7 MMOL/L (3.6-5.0)
[2022-06-17 04:49] LABS: CALCIUM 8.6 MG/DL (8.5-10.1)
[2022-06-17 04:50] LABS: TOTAL PROTEIN 7.1 GM/DL (6.4-8.2)
[2022-06-17 04:52] LABS: BILIRUBIN,TOTAL 0.4 MG/DL (0.1-1.0)
[2022-06-17 05:16] LABS: CREATININE SERUM 0.7 MG/DL (0.60-1.30)
--- NOTE | 2022-06-17 06:24 | Diagnostic Imaging Report ---
PROCEDURE: CT urinary tract, rule out kidney stone. TECHNIQUE: Multiple contiguous axial images were obtained through the abdomen and pelvis without the use of intravenous contrast. Auto Exposure Controls were utilized during the CT exam to meet ALARA standards for radiation dose reduction. INDICATION: Flank pain COMPARISON: 09/27/2021 FINDINGS: Unenhanced images of the liver and spleen reveal no focal abnormality. Gallbladder surgically absent. There is no biliary ductal dilatation. No pancreatic, adrenal gland or left renal abnormality is identified. Right kidney demonstrates mild surrounding edema and/or inflammation and there is mild right hydronephrosis and hydroureter. No definite ureteric stone is identified although there are multiple calcified phleboliths seen in the pelvis bilaterally which limits evaluation. There is no evidence of calcified bladder stone. No organized fluid collection or focal inflammation is seen. There is no evidence of appendiceal abnormality. IMPRESSION: Right perinephric edema and/or inflammation with mild right hydroureteronephrosis. No definite radiopaque stone is seen although recently passed calculus could contribute. Correlation with urinalysis would be of value. Otherwise, no acute abnormality is seen. Dictated by: Dictated on workstation # [id number]
[2022-06-17 06:50] VITALS: BP 119/73
== END 2022-06-17 06:54 | disposition home or self-care (01) ==
LOC: EDUNIT# 04:07 → ER 04:10
DX: N13.30 Unspecified hydronephrosis (principal); E11.40 Type 2 diabetes mellitus with diabetic neuropathy, unspecified; Z98.890 Other specified postprocedural states; Z86.16 Personal history of COVID-19; Z28.310 Unvaccinated for COVID-19; Z79.4 Long term (current) use of insulin
CPT/HCPCS: 36415; 74176; 80053; 81000; 85025

== ENCOUNTER 2022-12-25 03:04 | Emergency (ER) | payer BC, MEDICARE, MEDICAID ==
[~2022-12-25] VITALS: Ht 165.1 cm; Wt 82.0 kg
[~2022-12-25 03:04] MED LIST changes: +ALBU8.5H6 IH; +ATOM40CA6; +BUSP10TA95; +DICL75TA2; +MONT-40; +ROPI0.5T4; -RT-ALBUINH IH
[2022-12-25] MEDS ORDERED: morphine INJ 10 MG/ML 1ML (SYR OR VIAL) IVP STA (03:16)
--- NOTE | 2022-12-25 03:19 | ED GU-Female ---
General Chief Complaint: Abdominal/GI Problems Stated Complaint: RIGHT FLANK PAIN Source: patient, old records Exam Limitations: no limitations History of Present Illness Date Seen by Provider: Dec 25, 2022 Time Seen by Provider: 03:07 Initial Comments 52-year-old female with past medical history of kidney stones coming in due to right flank pain. Started around 1 AM, sharp, intermittent, severe. Associated with nausea. Feels like previous kidney stones to her. She states she has been having difficulty urinating since this started, and has not seen any blood in her urine. Denies any fever, diarrhea, chest pain, shortness of breath, or any other concerns. Allergies and Home Medications Allergies Coded Allergies: No Known Drug Allergies (Verified , 11/08/21) Patient Home Medication List Home Medication List Reviewed: Yes Atomoxetine HCl (Atomoxetine HCl) 40 Mg Capsule, (Reported) Entered as Reported by: APRIL ALANIZ on 06/17/22421 Buspirone HCl (Buspirone HCl) 10 Mg Tablet, (Reported) Entered as Reported by: APRIL ALANIZ on 06/17/22421 Colestipol HCl (Colestipol HCl) 1 Gm Tablet, 1 GM PO BID, (Reported) Entered as Reported by: PHIL MCKEON on 04/16/21 140 Diclofenac Sodium (Diclofenac Sodium) 75 Mg Tablet., (Reported) Entered as Reported by: APRIL ALANIZ on 06/17/22421 Insulin Aspart (Novolog Flexpen) 300 Units/3 Ml Solution, 8 UNIT SQ TIDWM, (Reported) Entered as Reported by: MARY PEREZ on 06/08/21 1524 Levocetirizine Dihydrochloride (Levocetirizine Dihydrochloride) 5 Mg Tablet, 5 MG PO DAILY, (Reported) Entered as Reported by: PHIL MCKEON on 04/16/21 140 Lisinopril (Lisinopril) 20 Mg Tablet, 20 MG PO DAILY, (Reported) Entered as Reported by: PHIL MCKEON on 04/16/21 140 Metoprolol Tartrate (Metoprolol Tartrate) 100 Mg Tablet, 100 MG PO HS, (Reported) Entered as Reported by: PHIL MCKEON on 04/16/21 140 Montelukast Sodium (Montelukast Sodium) 10 Mg Tablet, (Reported) Entered as Reported by: APRIL ALANIZ on 06/17/22421 Ondansetron (Ondansetron Odt) 4 Mg Tab.rapdis, 4 MG SL Q6H PRN for NAUSEA/VOMITING Prescribed by: ALAN COLLINS on 12/25/22 040 Oxybutynin Chloride (Oxybutynin Chloride) 5 Mg Tablet, 5 MG PO HS, (Reported) Entered as Reported by: PHIL MCKEON on 04/16/21 1404 Oxycodone HCl (Oxycodone HCl) 5 Mg Tablet, 5 MG PO Q6H PRN for PAIN SEVERE Prescribed by: ALAN COLLINS on 12/25/22 040 Ropinirole HCl (Ropinirole HCl) 0.5 Mg Tablet, (Reported) Entered as Reported by: APRIL ALANIZ on 06/17/22421 Review of Systems Review of Systems Constitutional: No fever EENTM: no symptoms reported Respiratory: no symptoms reported Cardiovascular: no symptoms reported Gastrointestinal: no symptoms reported Genitourinary: see HPI Musculoskeletal: no symptoms reported Skin: no symptoms reported Psychiatric/Neurological: No Symptoms Reported Past Prjxgao-Psttpv-Ptdtmb Hx Patient Social History Tobacco Use?: No Immunizations Up To Date Tetanus Booster (TDap): Unknown First/Initial COVID19 Vaccinat: 07/2021 Second COVID19 Vaccination Randy: SEPTEMBER 2021 Third COVID19 Vaccination Date: 07/2021 Seasonal Allergies Seasonal Allergies: Yes Past Medical History Surgery/Hospitalization HX: LITHOTRYPSY X3, RENAL STONES, NIDDM, ASTHMA, HTN, HOLLY, GERD, LIVER DISDEASE, FIBROMYALGIA, CH. BACK PAIN, ANXIETY/DEPRESSION Surgeries: Yes (uterine ablation, uvula removed) Adenoidectomy, Gallbladder, Nose, Renal, Tonsillectomy Respiratory: Yes (REPORTS OCCASIONAL WHEEZE SINCE COVID 04/2021) Asthma, Sleep Apnea Currently Using CPAP: No Currently Using BIPAP: No Cardiac: Yes (tachycardia) Hypertension Neurological: Yes Headaches /Migraines, Neuropathy Reproductive Disorders: No Female Reproductive Disorders: Denies Sexually Transmitted Disease: No HIV/AIDS: No Genitourinary: Yes Kidney Stones Gastrointestinal: Yes (DOESNT TAKE ANYTHING, FATTY LIVER) Gastroesophageal Reflux, Liver Disease/Jaundice, Chronic Diarrhea Musculoskeletal: No Degenerate Disk Disease, Arthritis, Fibromyalgia, Chronic Back Pain Endocrine: Yes Diabetes, Insulin dep HEENT: Yes Loss of Vision: Bilateral Hearing Impairment: Denies Cancer: No Psychosocial: Yes Anxiety, Depression Integumentary: No Blood Disorders: No Adverse Reaction/Blood Tranf: No Physical Exam Vital Signs Vital Signs - First Documented Capillary Refill : Height, Weight, BMI Height: 5'5.00" Weight: 180lbs. 0.0oz. [id number]; 30.00 BMI Method: General Appearance: WD/WN, mild distress HEENT: PERRL/EOMI, normal ENT inspection, pharynx normal Neck: non-tender, full range of motion, supple, normal inspection Cardiovascular: regular rate, rhythm, no edema, no murmur Respiratory: chest non-tender, lungs clear, normal breath sounds, no respiratory distress, no accessory muscle use Gastrointestinal: normal bowel sounds, non tender, soft; No distended, No guarding, No rebound Back: normal inspection, no vertebral tenderness, CVA tenderness (R) Extremities: normal range of motion, non-tender, normal inspection, no pedal edema, no calf tenderness, normal capillary refill Neurologic/Psychiatric: alert Skin: normal color, warm/dry Progress/Results/Core Measures Suspected Sepsis SIRS Temperature: Pulse: Respiratory Rate: Laboratory Tests 12/25/22 03:15: White Blood Count 9.1 Blood Pressure / Mean: Laboratory Tests 12/25/22 03:15: Creatinine 0.75, Platelet Count 263, Total Bilirubin 0.5 Results/Orders Lab Results Laboratory Tests Test 12/25/22 03:10 12/25/22 03:15 Range/Units Urine Color YELLOW Urine Clarity CLEAR Urine pH 6.0 5-9 Urine Specific [place] <=1.005 1.016-1.022 Urine Protein NEGATIVE NEGATIVE Urine Glucose (UA) NEGATIVE NEGATIVE Urine Ketones NEGATIVE NEGATIVE Urine Nitrite NEGATIVE NEGATIVE Urine Bilirubin NEGATIVE NEGATIVE Urine Urobilinogen 0.2 < = 1.0 MG/DL Urine Leukocyte Esterase NEGATIVE NEGATIVE Urine RBC (Auto) 3+ H NEGATIVE Urine RBC 50-100 H /HPF Urine WBC 0-2 /HPF Urine Squamous Epithelial Cells 0-2 /HPF Urine Crystals NONE /LPF Urine Bacteria TRACE /HPF Urine Casts NONE /LPF Urine Mucus NEGATIVE /LPF Urine Culture Indicated NO White Blood Count 9.1 4.3-11.0 10^3/uL Red Blood Count 5.14 H 3.80-5.11 10^6/uL Hemoglobin 14.6 11.5-16.0 g/dL Hematocrit 43 35-52 % Mean Corpuscular Volume 84 80-99 fL Mean Corpuscular Hemoglobin 28 25-34 pg Mean Corpuscular Hemoglobin Concent 34 32-36 g/dL Red Cell Distribution Width 13.2 10.0-14.5 % Platelet Count 263 130-400 10^3/uL Mean Platelet Volume 10.2 9.0-12.2 fL Immature Granulocyte % (Auto) 0 % Neutrophils (%) (Auto) 54 42-75 % Lymphocytes (%) (Auto) 38 12-44 % Monocytes (%) (Auto) 6 0-12 % Eosinophils (%) (Auto) 2 0-10 % Basophils (%) (Auto) 1 0-10 % Neutrophils # (Auto) 4.9 1.8-7.8 10^3/uL Lymphocytes # (Auto) 3.5 1.0-4.0 10^3/uL Monocytes # (Auto) 0.5 0.0-1.0 10^3/uL Eosinophils # (Auto) 0.1 0.0-0.3 10^3/uL Basophils # (Auto) 0.1 0.0-0.1 10^3/uL Immature Granulocyte # (Auto) 0.0 0.0-0.1 10^3/uL Sodium Level 139 135-145 MMOL/L Potassium Level 3.5 L 3.6-5.0 MMOL/L Chloride Level 103 98-107 MMOL/L Carbon Dioxide Level 19 L 21-32 MMOL/L Anion Gap 17 H 5-14 MMOL/L Blood Urea Nitrogen 15 7-18 MG/DL Creatinine 0.75 0.60-1.30 MG/DL Estimat Glomerular Filtration Rate 96 BUN/Creatinine Ratio 20 Glucose Level 228 H 70-105 MG/DL Calcium Level 9.3 8.5-10.1 MG/DL Corrected Calcium 9.1 8.5-10.1 MG/DL Total Bilirubin 0.5 0.1-1.0 MG/DL Aspartate Amino Transf (AST/SGOT) 33 5-34 U/L Alanine Aminotransferase (ALT/SGPT) 37 0-55 U/L Alkaline Phosphatase 105 40-136 U/L Total Protein 7.7 6.4-8.2 GM/DL Albumin 4.3 3.2-4.5 GM/DL Lipase 21 8-78 U/L My Orders Orders - ALAN COLLINS MD Cbc With Automated Diff (12/25/22 03:16) Comprehensive Metabolic Panel (12/25/22 03:16) Lipase (12/25/22 03:16) Ua Culture If Indicated (12/25/22 03:16) Ct Abd/Pelvis Wo(Kidney Stone) (12/25/22 03:16) Morphine Injection (Morphine Injection (12/25/22 03:16) Ondansetron Injection (Zofran Injectio (12/25/22 03:30) Ketorolac Injection (Toradol Injection) (12/25/22 03:30) Medications Given in ED Current Medications Medications Dose Ordered Sig/Víctor Route Start Time Stop Time Status Last Admin Dose Admin Ketorolac Tromethamine 15 mg ONCE ONCE IVP 12/25/22 03:30 12/25/22 03:31 DC 12/25/22 03:26 15 MG Ondansetron HCl 4 mg ONCE ONCE IVP 12/25/22 03:30 12/25/22 03:31 DC 12/25/22 03:25 4 MG Vital Signs/I&O 12/25/22 12/25/22 03:10 03:10 Temp 35.7 Pulse 127 Resp 20 B/P (MAP) 153/111 (125) Pulse Ox 97 O2 Delivery Room Air Room Air Capillary Refill : Progress Note : Progress Note 52-year-old female with above history coming in due to severe right flank pain. ABCs were intact and vitals are stable on presentation. Physical exam with right CVA tenderness. An IV was placed and patient was given morphine as well as Toradol for pain. She was given Zofran for nausea. Had significant improvement in her symptoms. Basic labs significant for blood in her urine and normal creatinine. CT abdomen pelvis ordered and interpreted by me showing a stone at the end of her ureter just at the bladder junction. Likely that the patient will pass this without difficulty. I believe she is otherwise stable for discharge with outpatient follow-up. She was sent home with strict return precautions. Prescriptions were sent for pain and nausea. Diagnostic Imaging Diagonstic Imaging: CT (abd/pelvis) Departure Impression Primary Impression: Ureterolithiasis Disposition: HOME, SELF-CARE Condition: Stable Departure-Patient Inst. Decision time for Depature: 05:25 Referrals: CAMILLA MONTENEGRO DNP (PCP/Family) Primary Care Physician Patient Instructions: Kidney Stones (DC) Add. Discharge Instructions: You have a small kidney stone on the right that is essentially in your bladder and has a very high chance of passing without difficulty. Pain meds and nausea meds were sent to your pharmacy to try to pass it. You can call the urologist of your choosing in [place] or wherever you would like to google since [place] does not have one anymore. Scripts Ondansetron (Ondansetron Odt) 4 Mg Tab.rapdis 4 MG SL Q6H PRN for NAUSEA/VOMITING for 5 Days, #20 TAB Prov: ALAN COLLINS MD 12/25/22 Oxycodone HCl (Oxycodone HCl) 5 Mg Tablet 5 MG PO Q6H PRN for PAIN SEVERE for 3 Days, #12 TAB Prov: ALAN COLLINS MD 12/25/22 Work/School Note: Work Release Form Date Seen in the Emergency Department: Dec 25, 2022 Return to Work: Dec 27, 2022 Restrictions: No Restrictions ALAN COLLINS MD Dec 25, 2022 03:19
[2022-12-25 03:24] LABS: BILIRUBIN,URINE NEGATIVE (NEGATIVE); CLARITY,URINE CLEAR; COLOR,URINE YELLOW; GLUCOSE, URINE (UA) NEGATIVE (NEGATIVE); KETONES,URINE NEGATIVE (NEGATIVE); LEUKOCYTE ESTERASE ,URINE NEGATIVE (NEGATIVE); NITRITE,URINE NEGATIVE (NEGATIVE); PROTEIN,URINE NEGATIVE (NEGATIVE)
[2022-12-25 03:27] LABS: BASOPHILS # (AUTO) 0.1 10^3/uL (0.0-0.1); BASOPHILS % (AUTO) 1 % (0-10); EOSINOPHILS # (AUTO) 0.1 10^3/uL (0.0-0.3); EOSINOPHILS % (AUTO) 2 % (0-10); HEMATOCRIT 43 % (35-52); HEMOGLOBIN 14.6 g/dL (11.5-16.0); LYMPHOCYTES # (AUTO) 3.5 10^3/uL (1.0-4.0); LYMPHOCYTES % (AUTO) 38 % (12-44); MEAN CORPUSCULAR HEMOGLOBIN 28 pg (25-34); MEAN CORPUSCULAR HGB CONC 34 g/dL (32-36); MEAN CORPUSCULAR VOLUME 84 fL (80-99); MEAN PLATELET VOLUME 10.2 fL (9.0-12.2); MONOCYTES # (AUTO) 0.5 10^3/uL (0.0-1.0); MONOCYTES % (AUTO) 6 % (0-12); NEUTROPHILS # (AUTO) 4.9 10^3/uL (1.8-7.8); NEUTROPHILS % (AUTO) 54 % (42-75); PLATELET COUNT 263 10^3/uL (130-400); WHITE BLOOD COUNT 9.1 10^3/uL (4.3-11.0)
[2022-12-25] MEDS ORDERED: KETOROLAC 30 MG/ML VIAL IVP ONE (03:30)
[2022-12-25] MEDS ORDERED: ONDANSETRON 4 MG/2 ML (SDV) Z0FRAN IVP ONE (03:30)
[2022-12-25 03:33] LABS: ALBUMIN 4.3 GM/DL (3.2-4.5); POTASSIUM 3.5 MMOL/L (3.6-5.0)
[2022-12-25 03:35] LABS: CALCIUM 9.3 MG/DL (8.5-10.1)
[2022-12-25 03:36] LABS: TOTAL PROTEIN 7.7 GM/DL (6.4-8.2)
[2022-12-25 03:38] LABS: BILIRUBIN,TOTAL 0.5 MG/DL (0.1-1.0)
[2022-12-25 03:39] LABS: CREATININE SERUM 0.75 MG/DL (0.60-1.30)
[2022-12-25 03:39] LABS: BACTERIA,URINE TRACE /HPF; RBC,URINE 50-100 /HPF; SQUAMOUS EPITHELIAL CELL,UR 0-2 /HPF; WBC,URINE 0-2 /HPF
[2022-12-25] MEDS ORDERED: ONDA4TAB11 SL (04:03)
[2022-12-25] MEDS ORDERED: OXYC5TAB PO (04:03)
--- NOTE | 2022-12-25 06:56 | Diagnostic Imaging Report ---
CT ABD/PELVIS WO(KIDNEY STONE) TECHNIQUE: Unenhanced CT imaging of the abdomen and pelvis was performed. 2-D reformats are created and submitted for interpretation. Automatic exposure controls were utilized to optimize patient dose. INDICATION: Right flank pain COMPARISON: None available. FINDINGS: Lower chest: The lung bases are clear. No pericardial or pleural effusion. Peritoneum: No free intraperitoneal air or fluid. Liver and biliary system: Diffuse low-attenuation liver is indicative of steatosis. No focal hepatic lesion is appreciated. Cholecystectomy. Spleen and Pancreas: Spleen is normal. Unenhanced pancreas is grossly normal. Adrenals: Normal. tract: Mild right hydronephrosis and hydroureter is due to a 2 mm stone within the urinary bladder immediately adjacent to the UVJ. Multiple phleboliths are present along the posterior aspect urinary bladder. Uterus and ovaries are normal in appearance. No left-sided hydronephrosis. GI tract: Stomach is filled with fluid and food debris. No bowel obstruction. No pericolonic inflammatory changes. Normal appendix. Vasculature and Lymph nodes: Normal caliber aorta. No abdominal or pelvic lymphadenopathy. Musculoskeletal: No concerning osseous lesion. IMPRESSION: 1. Mild right hydronephrosis due to a 2 mm stone this just passed into the urinary bladder. 2. Findings are in agreement with the preliminary report. Dictated by: Dictated on workstation # [id number]
[2022-12-25 08:05] VITALS: BP 132/91
== END 2022-12-25 08:05 | disposition home or self-care (01) ==
LOC: EDUNIT# 03:04 → ER 03:06
DX: N13.2 Hydronephrosis with renal and ureteral calculous obstruction (principal); E11.9 Type 2 diabetes mellitus without complications; Z79.4 Long term (current) use of insulin; Z86.16 Personal history of COVID-19; Z87.19 Personal history of other diseases of the digestive system; Z98.890 Other specified postprocedural states
CPT/HCPCS: 36415; 74176; 80053; 81000; 83690; 85025

== ENCOUNTER 2023-01-27 19:04 | Emergency (ER) | payer BC, MEDICARE, MEDICAID ==
[~2023-01-27] VITALS: Ht 165 cm; Wt 86.2 kg
[~2023-01-27 19:04] MED LIST changes: -INSU100I29 SQ; +INSU100I30 SQ; +ONDA4TAB11 SL; +OXYC5TAB PO
[2023-01-27] MEDS ORDERED: INSU100I88 (19:53)
[2023-01-27] MEDS ORDERED: AMPHET/DEXTR (19:53)
[2023-01-27] MEDS ORDERED: ATOR80TA76 (19:53)
--- NOTE | 2023-01-27 20:19 | ED Upper Extremity ---
General Chief Complaint: Laceration Stated Complaint: LACERATION ON RIGHT HAND Nursing Triage Note: pt reports cutting right thumb/hand with broken glass while washing dishes approx. 1830. 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 wounds cleaned with hibiclens/ sterile ns. minimal bleeding at this time. Source: patient Exam Limitations: no limitations (ALAN DODD) History of Present Illness Date Seen by Provider: Jan 27, 2023 Time Seen by Provider: 20:16 Initial Comments Patient is a 52-year-old female presents ED with a laceration to right palmar hand. She states around 1830 she was cleaning dishes when a glass broke causing a cut on her right dorsum thumb and right lateral hand. Bleeding controlled direct pressure. Attempted apply glue to the right thumb secondary to bleeding. Normal active range of motion the digit. Not up-to-date on tetanus. Lacerations are about 1 cm each. No tendon or muscular involvement (ALAN DODD) Allergies and Home Medications Allergies Coded Allergies: No Known Drug Allergies (Verified , 11/08/21) Patient Home Medication List Home Medication List Reviewed: Yes (ALAN DODD) Atomoxetine HCl (Atomoxetine HCl) 40 Mg Capsule, (Reported) Entered as Reported by: APRIL ALANIZ on 06/17/22421 Atorvastatin Calcium (Atorvastatin Calcium) 80 Mg Tablet, (Reported) Entered as Reported by: APRIL ALANIZ on 01/27/231952 Last Action: New Order Buspirone HCl (Buspirone HCl) 10 Mg Tablet, (Reported) Entered as Reported by: APRIL ALANIZ on 06/17/22421 Colestipol HCl (Colestipol HCl) 1 Gm Tablet, 1 GM PO BID, (Reported) Entered as Reported by: PHIL MCKEON on 04/16/21 1404 Diclofenac Sodium (Diclofenac Sodium) 75 Mg Tablet., (Reported) Entered as Reported by: APRIL ALANIZ on 06/17/22421 Insulin Aspart (Novolog Flexpen) 300 Units/3 Ml Solution, 8 UNIT SQ TIDWM, (Reported) Entered as Reported by: MARY PEREZ on 06/08/21 1524 Insulin Detemir (Levemir Flexpen) 100 Unit/Ml (3 Ml) Insuln.pen, (Reported) Entered as Reported by: APRIL ALANIZ on 01/27/231952 Last Action: New Order Levocetirizine Dihydrochloride (Levocetirizine Dihydrochloride) 5 Mg Tablet, 5 MG PO DAILY, (Reported) Entered as Reported by: PHIL MCKEON on 04/16/211403 Lisinopril (Lisinopril) 20 Mg Tablet, 20 MG PO DAILY, (Reported) Entered as Reported by: PHIL MCKEON on 04/16/211403 Metoprolol Tartrate (Metoprolol Tartrate) 100 Mg Tablet, 100 MG PO HS, (Reported) Entered as Reported by: PHIL MCKEON on 04/16/211403 Montelukast Sodium (Montelukast Sodium) 10 Mg Tablet, (Reported) Entered as Reported by: APRIL ALANIZ on 06/17/22421 Ondansetron (Ondansetron Odt) 4 Mg Tab.rapdis, 4 MG SL Q6H PRN for NAUSEA/VOMITING Prescribed by: ALAN COLLINS on 12/25/22402 Oxybutynin Chloride (Oxybutynin Chloride) 5 Mg Tablet, 5 MG PO HS, (Reported) Entered as Reported by: PHIL MCKEON on 04/16/211403 Oxycodone HCl (Oxycodone HCl) 5 Mg Tablet, 5 MG PO Q6H PRN for PAIN SEVERE Prescribed by: ALAN COLLINS on 12/25/22403 Ropinirole HCl (Ropinirole HCl) 0.5 Mg Tablet, (Reported) Entered as Reported by: APRIL ALANIZ on 06/17/22421 [Amphet/Dextr] , (Reported) Entered as Reported by: APRIL ALANIZ on 01/27/231952 Last Action: New Order Review of Systems Constitutional: No see HPI, No chills, No diaphoresis EENTM: No hearing loss, No ear pain, No blurred vision Respiratory: No cough, No dyspnea on exertion Cardiovascular: No chest pain Gastrointestinal: No abdominal pain, No diarrhea, No nausea Genitourinary: No decreased output Musculoskeletal: No back pain; joint pain, muscle pain Skin: change in color, other (Hand lacerations) (ALAN DODD) All Other Systems Reviewed Negative Unless Noted: Yes (ALAN DODD) Past Lnparng-Lnexhl-Zyneuh Hx Patient Social History Tobacco Use?: No Substance use?: No Alcohol Use?: No Pt feels they are or have been: No (ALAN DODD) Immunizations Up To Date Tetanus Booster (TDap): Unknown First/Initial COVID19 Vaccinat: 07/2021 Second COVID19 Vaccination Randy: 09/2021 Third COVID19 Vaccination Date: 07/2021 (ALAN DODD) Seasonal Allergies Seasonal Allergies: Yes (ALAN DODD) Past Medical History Surgery/Hospitalization HX: LITHOTRYPSY X3, RENAL STONES, IDDM, ASTHMA, HTN, HOLLY, GERD, LIVER DISEASE, FIBROMYALGIA, CH. BACK PAIN, ANXIETY/DEPRESSION Surgeries: Yes (uterine ablation, uvula removed) Adenoidectomy, Gallbladder, Nose, Renal, Tonsillectomy Respiratory: Yes (REPORTS OCCASIONAL WHEEZE SINCE COVID 04/2021) Asthma, Sleep Apnea Currently Using CPAP: No Currently Using BIPAP: No Cardiac: Yes (tachycardia) Hypertension Neurological: Yes Headaches /Migraines, Neuropathy Reproductive Disorders: No Female Reproductive Disorders: Denies Sexually Transmitted Disease: No HIV/AIDS: No Genitourinary: Yes Kidney Stones Gastrointestinal: Yes (DOESNT TAKE ANYTHING, FATTY LIVER) Gastroesophageal Reflux, Liver Disease/Jaundice, Chronic Diarrhea Musculoskeletal: No Degenerate Disk Disease, Arthritis, Fibromyalgia, Chronic Back Pain Endocrine: Yes Diabetes, Insulin dep HEENT: Yes Loss of Vision: Bilateral Hearing Impairment: Denies Cancer: No Psychosocial: Yes Anxiety, Depression Integumentary: No Blood Disorders: No Adverse Reaction/Blood Tranf: No (ALAN DODD) Physical Exam Vital Signs Vital Signs - First Documented 01/27/23 19:45 Temp 36.7 Pulse 120 Resp 18 B/P (MAP) 132/89 (103) Pulse Ox 95 O2 Delivery Room Air (FANNYFRANCISCO K DO) Vital Signs Capillary Refill : Less Than 3 Seconds (ALAN DODD) Height, Weight, BMI Height: 5'5.00" Weight: 180lbs. 0.0oz. 81.522427ho; 31.00 BMI Method: General Appearance: WD/WN, no apparent distress HEENT: PERRL/EOMI, normal ENT inspection, TMs normal, pharynx normal Neck: non-tender, full range of motion, supple, normal inspection Cardiovascular: regular rate, rhythm, no edema, no gallop, no JVD Respiratory: chest non-tender, lungs clear, normal breath sounds, no respiratory distress Gastrointestinal: normal bowel sounds, non tender, soft, no organomegaly Shoulder: normal inspection, non-tender Elbow/Forearm: normal inspection, non-tender, no evidence of injury, Right Wrist: Yes no evidence of injury Hand: Right, laceration (1 cm laceration to right thumb, 1 cm laceration to right lateral hand. 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 Adipose involvement.) (ALAN DODD) Procedures/Interventions Wound Location: Upper Extremities Other Wound Location right lateral hand, right thumb Wound Length (cm): 1 Wound's Depth, Shape: superficial, sub Q Wound Explored: clean Irrigated w/ Saline (ccs): 200 Betadine Prep?: Yes Anesthesia: 1% Lidocaine Volume Anesthetic (ccs): 4 Wound Debrided: minimal Suture: Ethlion Suture Size: 4-0 Number of Sutures: 7 Layer Closure?: 1 Progress 1 cm laceration to right lateral hand. Four 4-0 Ethilon sutures were placed. 2 mL of lidocaine 1% was used. 1 similar laceration to right dorsum thumb. Three 4-0 Ethilon sutures were placed. 2 mils of lidocaine 1% was used. (ALAN DODD) Progress/Results/Core Measures Results/Orders Medications Given in ED Current Medications Medications Dose Ordered Sig/Víctor Route Start Time Stop Time Status Last Admin Dose Admin Diphtheria/ Tetanus/Acell Pertussis 0.5 ml ONCE ONCE IM 01/27/23 21:00 01/27/23 21:01 DC 01/27/23 21:05 0.5 ML Lidocaine HCl 10 ml ONCE ONCE INJ 01/27/23 20:45 01/27/23 20:46 DC 01/27/23 20:43 10 ML (FRANCISCO ESCOBEDO DO) Vital Signs/I&O 01/27/23 01/27/23 19:45 21:05 Temp 36.7 36.5 Pulse 120 105 Resp 18 16 B/P (MAP) 132/89 (103) 111/84 Pulse Ox 95 97 O2 Delivery Room Air Room Air (FRANCISCO ESCOBEDO DO) Blood Pressure Mean: 103 Departure Communication (PCP) Patient with 2 lacerations to right hand. I Was able to place seven 4-0 Ethilon sutures. Procedure documented note. Update tetanus. No tendon or muscular involvement. Recommend Neosporin twice a day for the next 10 days. Suture removal in 10 days. Keep the area covered with gauze. If any worsening pain, swelling or redness to return back to ED. No oral prophylactic antibiotics needed. (ALAN DODD) Impression Primary Impression: Hand laceration Disposition: 01 HOME, SELF-CARE Condition: Stable Departure-Patient Inst. Decision time for Depature: 21:01 (ALAN DODD) Referrals: CAMILLA MONTENEGRO DNP (PCP/Family) Primary Care Physician Patient Instructions: Laceration Repair With Stitches ED Add. Discharge Instructions: Soap and water. Neosporin topical twice a day. Keep the area covered. Remove sutures in 10 days. If any worsening symptoms such as redness or swelling to return back to ED. All discharge instructions reviewed with patient and/or family. Voiced understanding. ATTENDING PHYSICIAN NOTE: I WAS PHYSICALLY PRESENT ER PHYSICIAN, BUT I WAS NOT INVOLVED IN ANY DECISION MAKING OR ANY CARE OF THIS PATIENT AND I AM NOT COLLABORATING PHYSICIAN. (FRANCISCO ESCOBEDO DO) ALAN DODD Jan 27, 2023 20:19 FRANCISCO ESCOBEDO DO Jan 28, 2023 07:04
[2023-01-27] MEDS ORDERED: LIDOCAINE 1% INJ 20 ML VIAL ONE (20:42)
[2023-01-27] MEDS ORDERED: LIDOCAINE 1% INJ 10 ML VIAL INJ ONE (20:45)
[2023-01-27] MEDS ORDERED: TETANUS,DIPTH,PERTUSS P/F (BOOSTRIX) 0.5 ML VIAL IM ONE (21:00)
[2023-01-27 21:05] VITALS: BP 111/84
== END 2023-01-27 21:09 | disposition home or self-care (01) ==
LOC: EDUNIT# 19:04 → ER 19:06
DX: S61.011A Laceration without foreign body of right thumb without damage to nail, initial encounter (principal); E11.9 Type 2 diabetes mellitus without complications; Z79.4 Long term (current) use of insulin; Z86.16 Personal history of COVID-19; Z23 Encounter for immunization; W25.XXXA Contact with sharp glass, initial encounter; Y93.G1 Activity, food preparation and clean up
CPT/HCPCS: 12002; 90715